=== PATIENT | female | born 1950 | race Caucasian/White ===

== ENCOUNTER 2024-09-24 22:50 | Inpatient (IN) | payer MEDICARE, OTHER ==
[2024-09-24] MEDS: SODIUM CHLORIDE 0.9% 500 ML 500 ML IV STA (23:11)
[2024-09-24] MEDS: AZITHROMYCIN 500 MG in SODIUM CHLORIDE 0.9% 250 ML IVPB STA (23:12)
[2024-09-24] MEDS: methylPREDNISolone SOD SUCCI 125 MG/2 ML VIAL IV STA (23:12)
[2024-09-24] MEDS: ALBUTEROL NEBULIZED 2.5 MG/3 ML INHALATION SCH (23:15)
[2024-09-24] MEDS: IPRATROPIUM 0.5 MG/2.5 ML NEBU INHALATION STA ×2 (23:16→23:56)
--- NOTE | 2024-09-24 23:21 | ED ---
General Adult HPI - General Stated complaint: YAEL Time Seen by Provider: 09/24/24 22:52 Source: patient, EMS Mode of arrival: EMS Limitations: no limitations - History of Present Illness Initial comments: Patient is a 74-year-old female presenting from her nursing facility today for "expiratory wheezing". Patient was at her facility this evening when nursing staff had listened to her lungs noted expiratory wheezes, prompting them to call the emergency department. Patient had additionally made comments stating she thought somebody had "slipped cocaine into her milk" however patient is known to make bizarre comments at baseline and this is her baseline mental status. Mackenzie ent does endorse a cough, no hemoptysis. 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 Denies chest pain or abdominal pain or additional complaints. States she did feel she had a fever earlier 100 degrees History is limited as patient reportedly "makes up stories". Does state to me comments such as she feels like somebody "somebody slipped TB into her". She is AO x4, pleasant calm and cooperative. - Related Data Home Medications Medication Instructions Recorded Confirmed Atorvastatin [Lipitor] 10 mg PO HS 09/25/24 09/25/24 FLUoxetine HCL [PROzac] 20 mg PO DAILY 09/25/24 09/25/24 Mirtazapine [Remeron] 15 mg PO HS 09/25/24 09/25/24 lisinopriL [Zestril] 20 mg PO DAILY 09/25/24 09/25/24 metFORMIN HCL ER [Glucophage XR] 500 mg PO DAILY@1700 09/25/24 09/25/24 risperiDONE [RisperDAL] 1 mg PO BID 09/25/24 09/25/24 Allergies Allergy/AdvReac Type Severity Reaction Status Date / Time Sulfa (Sulfonamide AdvReac Unknown Verified 09/25/24 09:18 Antibiotics) Childhood Review of Systems ROS Statement: Those systems with pertinent positive or pertinent negative responses have been documented in the HPI. ROS Other: All systems not noted in ROS Statement are negative. Past Medical History Past Medical History: Diabetes Mellitus, Hyperlipidemia, Hypertension, Thyroid Disorder History of Any Multi-Drug Resistant Organisms: None Reported Past Surgical History: Tonsillectomy Past Psychological History: No Psychological Hx Reported Smoking Status: Never smoker Past Alcohol Use History: None Reported Past Drug Use History: None Reported General Exam - General Exam Comments Initial Comments: PE: CONSTITUTIONAL: No apparent distress, well appearing SKIN: Warm, dry, no jaundice, hives or petechiae EYES: Pupils are equally round, extraocular movements intact without nystagmus, clear conjunctiva, non-icteric sclera HENT: Normocephalic, atraumatic, moist mucus membranes, oropharynx clear without exudates NECK: , Full range of motion, normal appearance PULMONARY: Expiratory wheezing throughout all lung eckert worse, with coarse rhonchi in the left lung field, normal excursion, no stridor, no accessory muscle use c CARDIOVASCULAR: Regular rate, rhythm, normal S1 and S2. No appreciated murmurs, rubs or gallops. Strong radial pulses with intact distal perfusion. No lower extremity edema GASTROINTESTINAL: Soft, active bowel sounds throughout, non-tender, non- distended, no palpable masses, no rebound or guarding. No hepatosplenomegaly MUSCULOSKELETAL: Extremities have no gross deformity, no edema, redness, or swelling. No calf swelling NEUROLOGIC:_a/o x 3, GCS 15, normal mentation and speech though at times makes bizarre comments. Moves all extremities x 4 without motor or sensory deficit PSYCHIATRIC: Pleasant mood and affect, thought process is somewhat tangential but able to maintain a clear line of thought when being asked about recent symptoms Limitations: no limitations Course Vital Signs 09/24/24 09/24/24 09/24/24 22:54 23:18 23:27 Temperature 98.7 F Pulse Rate 89 86 84 Respiratory 22 Rate Blood Pressure 146/80 O2 Sat by Pulse 98 Oximetry 09/24/24 09/25/24 09/25/24 23:56 00:06 00:16 Temperature Pulse Rate 93 88 96 Respiratory 22 Rate Blood Pressure 115/48 O2 Sat by Pulse 98 Oximetry 09/25/24 09/25/24 09/25/24 00:51 01:37 01:46 Temperature Pulse Rate 84 84 Respiratory 22 Rate Blood Pressure O2 Sat by Pulse Oximetry 09/25/24 09/25/24 09/25/24 01:58 04:00 06:00 Temperature 98.7 F Pulse Rate 92 84 79 Respiratory 21 18 18 Rate Blood Pressure 142/72 123/49 140/58 O2 Sat by Pulse 97 98 98 Oximetry 09/25/24 09/25/24 09/25/24 07:57 09:03 09:26 Temperature Pulse Rate 79 73 75 Respiratory 17 Rate Blood Pressure 142/55 O2 Sat by Pulse 98 100 Oximetry 09/25/24 09/25/24 09/25/24 10:28 12:07 12:09 Temperature Pulse Rate 84 96 78 Respiratory 14 16 Rate Blood Pressure 125/59 140/64 O2 Sat by Pulse 98 96 Oximetry 09/25/24 09/25/24 09/25/24 12:15 13:29 16:28 Temperature Pulse Rate 92 78 75 Respiratory 16 Rate Blood Pressure 130/56 O2 Sat by Pulse 94 L Oximetry 09/25/24 09/25/24 16:37 20:32 Temperature 98.8 F Pulse Rate 78 83 Respiratory 17 Rate Blood Pressure 132/60 O2 Sat by Pulse 96 Oximetry EKG Findings - EKG Comments: EKG Findings:: Sinus rhythm, rate 82 bpm VT interval 151 ms QT/QTc 380/420 ms, normal axis, no ST elevations or depressions, no arrhythmia, no delta waves, no Brugada pattern no STEMI Medical Decision Making - Medical Decision Making Was pt. sent in by a medical professional or institution (, PA, COOKING [employer]ING AND DRYING SUPERVISOR, urgent care, hospital, or fpc...) When possible be specific @Patient was sent in from her nursing facility for expiratory wheezes Did you speak to anyone other than the patient for history (EMS, parent, family, police, friend...)? What history was obtained from this source @ -Spoke with EMS personnel who state that on their arrival patient did have wheezing in lung eckert, pulse ox of 90% on room air, received albuterol nebulizer treatment and route which improved her lung sounds, additionally state patient is at her baseline mental status, known to make odd and bizarre comments Did you review nursing and triage notes (agree or disagree)? Why? @ -[I reviewed nursing and triage notes] Were old charts reviewed (outside hosp., previous admission, EMS record, old EKG, old radiological studies, urgent care reports/EKG's, fpc records)? Report findings @ -[Medical records reviewed]-I reviewed paperwork sent with patient from transferring facility, states she does have a guardian, confirms that patient can "tell stories" of behavior Differential Diagnosis (chest pain, altered mental status, abdominal pain women, abdominal pain men, vaginal bleeding, weakness, fever, dyspnea, syncope, headache, dizziness, GI bleed, back pain, seizure, CVA, palpatations, mental health, musculoskeletal)? @Differential Dyspnea: Coronary syndrome, arrhythmia, tamponade, asthma, COPD, pulmonary embolism, pneumonia, pneumothorax, pulmonary effusion, anaphylaxis, diabetic ketoacidosis, flailed chest, pulmonary contusion, diaphragmatic rupture, anemia, neuromuscular, this is not meant to be an all-inclusive list. EKG interpreted by me (3pts min.). @ -[As above] X-rays interpreted by me (1pt min.). @ -[None done] CT interpreted by me (1pt min.). @ -[None done] U/S interpreted by me (1pt. min.). @ -[None done] What testing was considered but not performed or refused? (CT, X-rays, U/S, labs)? Why? @ -[None] What meds were considered but not given or refused? Why? @ -[None] Did you discuss the management of the patient with other professionals (professionals i.e. , PA, COOKING CASING AND DRYING SUPERVISOR, lab, RT, psych nurse, social sciences research scientist, electrocardiographic technician, teacher, uniform patrol police officer, case management rn)? Give summary @ -[No] Was smoking cessation discussed for >3mins.? @ -[No] Was critical care preformed (if so, how long)? @ -[No] Were there social determinants of health that impacted care today? How? (Homelessness, low income, unemployed, alcoholism, drug addiction, transportation, low edu. Level, literacy, decrease access to med. care, retirement, rehab)? @ -[No] Was there de-escalation of care discussed even if they declined (Discuss DNR or withdrawal of care, Hospice)? @ -[No] What co-morbidities impacted this encounter? (DM, HTN, Smoking, COPD, CAD, Cancer, CVA, ARF, Chemo, Hep., AIDS, mental health diagnosis, sleep apnea, morbid obesity)? @ -Diabetes, hypertension, hyperlipidemia, thyroid disorder Was patient admitted / discharged? Hospital course, mention meds given and route, prescriptions, significant lab abnormalities, going to OR and other pertinent info. @ -[hospital course] this is a 74-year-old female presenting from assisted living facility today for expiratory wheezes. No listed or reported hx COPD or asthma, pt is a nonsmoker. Patient received albuterol from prior to arrival. Patient endorsed improvement of symptoms. On assessment she has wheeze in the bilateral lung eckert with rhonchi in the left lung field. She is afebrile with vital signs acceptable limits on arrival. Patient currently has no complaints and is resting comfortably. 89% pulse ox on room air, so placed on 2L NC. Discussed with patient plan for chest x-ray, basic labs, nebulizer treatments and steroids. Antibiotics were ordered as pt is not the best historian, given rhonchi in LL field and increased O2 requirement. Full sepsis bundle was not ordered as pt does not meet SIRS criteria on arrival. Patient agreeable plan of care. Patient is positive for RSV. On reassessment patient has persistent wheezes and rhonchi though pulmonary exam is slightly improved. Due to persistent wheezing and rhochi on exam despite adequate treatment, pt will be admitted for observation. Undiagnosed new problem with uncertain prognosis? @ -[No] Drug Therapy requiring intensive monitoring for toxicity (Heparin, Nitro, Insulin, Cardizem)? @ -[No] Were any procedures done? @ -[No] Diagnosis/symptom? @Acute bronchitis , RSV Acute, or Chronic, or Acute on Chronic? acute Uncomplicated (without systemic symptoms) or Complicated (systemic symptoms)? complicated Side effects of treatment? @ -[No] Exacerbation, Progression, or Severe Exacerbation? @ -[No] Poses a threat to life or bodily function? How? (Chest pain, USA, DC, pneumonia, PE, COPD, DKA, ARF, appy, cholecystitis, CVA, Diverticulitis, Homicidal, Suicidal, threat to staff... and all critical care pts) @ -yes - Lab Data Result diagrams: 09/27/24 04:42 09/27/24 04:37 Lab Results 09/24/24 09/24/24 09/24/24 Range/Units 23:13 23:13 23:13 WBC 6.7 (3.8-10.6) k/uL RBC 4.35 (3.80-5.40) m/uL Hgb 12.1 (11.4-16.0) gm/dL Hct 38.3 (34.0-46.0) % MCV 88.1 (80.0-100.0) fL MCH 27.9 (25.0-35.0) pg MCHC 31.6 (31.0-37.0) g/dL RDW 13.6 (11.5-15.5) % Plt Count 121 L (150-450) k/uL MPV 8.1 Neutrophils % 73 % Lymphocytes % 15 % Monocytes % 6 % Eosinophils % 4 % Basophils % 0 % Neutrophils # 4.9 (1.3-7.7) k/uL Lymphocytes # 1.0 (1.0-4.8) k/uL Monocytes # 0.4 (0-1.0) k/uL Eosinophils # 0.3 (0-0.7) k/uL Basophils # 0.0 (0-0.2) k/uL Hypochromasia PT 11.4 (10.0-12.5) sec INR 1.0 (<1.2) APTT 21.8 L (22.0-30.0) sec Sodium 131 L (137-145) mmol/L Potassium 4.4 (3.5-5.1) mmol/L Chloride 96 L (98-107) mmol/L Carbon Dioxide 26 (22-30) mmol/L Anion Gap 9 mmol/L BUN 17 (7-17) mg/dL Creatinine 0.51 L (0.52-1.04) mg/dL Est GFR (CKD-EPI)AfAm >90 (>60 ml/min/1.73 sqM) Est GFR (CKD-EPI)NonAf >90 (>60 ml/min/1.73 sqM) Glucose 163 H (74-99) mg/dL POC Glucose (mg/dL) (70-110) mg/dL POC Glu Hr Leader ID Calcium 8.9 (8.4-10.2) mg/dL Total Bilirubin 0.5 (0.2-1.3) mg/dL AST 89 H (14-36) U/L ALT 122 H (4-34) U/L Alkaline Phosphatase 80 (38-126) U/L Troponin I (0.000-0.034) ng/mL NT-Pro-B Natriuret Pep 1480 pg/mL Total Protein 6.7 (6.3-8.2) g/dL Albumin 3.6 (3.5-5.0) g/dL Globulin g/dL Albumin/Globulin Ratio Influenza Type A (PCR) (Not Detectd) Influenza Type B (PCR) (Not Detectd) RSV (PCR) (Not Detectd) SARS-CoV-2 (PCR) (Not Detectd) 09/24/24 09/24/24 09/25/24 Range/Units 23:13 23:13 07:56 WBC 6.8 (3.8-10.6) k/uL RBC 4.04 (3.80-5.40) m/uL Hgb 11.2 L (11.4-16.0) gm/dL Hct 36.5 (34.0-46.0) % MCV 90.4 (80.0-100.0) fL MCH 27.8 (25.0-35.0) pg MCHC 30.7 L (31.0-37.0) g/dL RDW 13.7 (11.5-15.5) % Plt Count 159 (150-450) k/uL MPV 7.8 Neutrophils % 90 % Lymphocytes % 7 % Monocytes % 2 % Eosinophils % 1 % Basophils % 0 % Neutrophils # 6.1 (1.3-7.7) k/uL Lymphocytes # 0.5 L (1.0-4.8) k/uL Monocytes # 0.1 (0-1.0) k/uL Eosinophils # 0.0 (0-0.7) k/uL Basophils # 0.0 (0-0.2) k/uL Hypochromasia Slight PT (10.0-12.5) sec INR (<1.2) APTT (22.0-30.0) sec Sodium (137-145) mmol/L Potassium (3.5-5.1) mmol/L Chloride (98-107) mmol/L Carbon Dioxide (22-30) mmol/L Anion Gap mmol/L BUN (7-17) mg/dL Creatinine (0.52-1.04) mg/dL Est GFR (CKD-EPI)AfAm (>60 ml/min/1.73 sqM) Est GFR (CKD-EPI)NonAf (>60 ml/min/1.73 sqM) Glucose (74-99) mg/dL POC Glucose (mg/dL) (70-110) mg/dL POC Glu Hr Leader ID Calcium (8.4-10.2) mg/dL Total Bilirubin (0.2-1.3) mg/dL AST (14-36) U/L ALT (4-34) U/L Alkaline Phosphatase (38-126) U/L Troponin I <0.012 (0.000-0.034) ng/mL NT-Pro-B Natriuret Pep pg/mL Total Protein (6.3-8.2) g/dL Albumin (3.5-5.0) g/dL Globulin g/dL Albumin/Globulin Ratio Influenza Type A (PCR) Not Detected (Not Detectd) Influenza Type B (PCR) Not Detected (Not Detectd) RSV (PCR) Detected A (Not Detectd) SARS-CoV-2 (PCR) Not Detected (Not Detectd) 09/25/24 09/25/24 09/25/24 Range/Units 07:56 12:04 21:35 WBC (3.8-10.6) k/uL RBC (3.80-5.40) m/uL Hgb (11.4-16.0) gm/dL Hct (34.0-46.0) % MCV (80.0-100.0) fL MCH (25.0-35.0) pg MCHC (31.0-37.0) g/dL RDW (11.5-15.5) % Plt Count (150-450) k/uL MPV Neutrophils % % Lymphocytes % % Monocytes % % Eosinophils % % Basophils % % Neutrophils # (1.3-7.7) k/uL Lymphocytes # (1.0-4.8) k/uL Monocytes # (0-1.0) k/uL Eosinophils # (0-0.7) k/uL Basophils # (0-0.2) k/uL Hypochromasia PT (10.0-12.5) sec INR (<1.2) APTT (22.0-30.0) sec Sodium 135 L (137-145) mmol/L Potassium 4.6 (3.5-5.1) mmol/L Chloride 100 (98-107) mmol/L Carbon Dioxide 25 (22-30) mmol/L Anion Gap 10 mmol/L BUN 16 (7-17) mg/dL Creatinine 0.42 L (0.52-1.04) mg/dL Est GFR (CKD-EPI)AfAm >90 (>60 ml/min/1.73 sqM) Est GFR (CKD-EPI)NonAf >90 (>60 ml/min/1.73 sqM) Glucose 325 H (74-99) mg/dL POC Glucose (mg/dL) 360 H 323 H (70-110) mg/dL POC Glu Hr Leader ID Raul Kirby Calcium 8.8 (8.4-10.2) mg/dL Total Bilirubin 0.5 (0.2-1.3) mg/dL AST 60 H (14-36) U/L ALT 116 H (4-34) U/L Alkaline Phosphatase 81 (38-126) U/L Troponin I (0.000-0.034) ng/mL NT-Pro-B Natriuret Pep pg/mL Total Protein 6.7 (6.3-8.2) g/dL Albumin 3.6 (3.5-5.0) g/dL Globulin 3.1 g/dL Albumin/Globulin Ratio 1.2 Influenza Type A (PCR) (Not Detectd) Influenza Type B (PCR) (Not Detectd) RSV (PCR) (Not Detectd) SARS-CoV-2 (PCR) (Not Detectd) Disposition Clinical Impression: Acute bronchitis, RSV (respiratory syncytial virus infection) Disposition: ADMITTED IP TO THIS HOSP Condition: Stable
[2024-09-24 23:31] LABS: Basophils % (A) 0 %; Eosinophils # (A) 0.3 k/uL (0-0.7); Eosinophils % (A) 4 %; HCT 38.3 % (34.0-46.0); HGB 12.1 gm/dL (11.4-16.0); Lymphocytes % (A) 15 %; MCH 27.9 pg (25.0-35.0); MCHC 31.6 g/dL (31.0-37.0); MCV 88.1 fL (80.0-100.0); Mean Platelet Volume 8.1; Monocytes # (A) 0.4 k/uL (0-1.0); Monocytes % (A) 6 %; Neutrophils # (A) 4.9 k/uL (1.3-7.7); Neutrophils % (A) 73 %; Platelet Count 121 k/uL (150-450); RBC 4.35 m/uL (3.80-5.40); RDW 13.6 % (11.5-15.5); WBC 6.7 k/uL (3.8-10.6)
[2024-09-24 23:47] LABS: ALT 122 U/L (4-34); AST 89 U/L (14-36); African American GFR (CKD) >90 (>60 ml/min/1.73 sqM); Albumin 3.6 g/dL (3.5-5.0); Alkaline Phosphatase 80 U/L (38-126); Anion Gap 9 mmol/L; Blood Urea Nitrogen 17 mg/dL (7-17); Calcium 8.9 mg/dL (8.4-10.2); Carbon Dioxide 26 mmol/L (22-30); Chloride 96 mmol/L (98-107); Glucose 163 mg/dL (74-99); Non-African American GFR(CKD) >90 (>60 ml/min/1.73 sqM); Potassium 4.4 mmol/L (3.5-5.1); Sodium 131 mmol/L (137-145); Total Bilirubin 0.5 mg/dL (0.2-1.3); Total Protein 6.7 g/dL (6.3-8.2)
[2024-09-24 23:48] LABS: Prothrombin Time 11.4 sec (10.0-12.5)
[2024-09-24 23:51] LABS: Partial Thromboplastin Time 21.8 sec (22.0-30.0)
[2024-09-24 23:55] LABS: NT-Pro-B-Type Natriuretic Pept 1480 pg/mL
[2024-09-25 00:06] LABS: Influenza A Not Detected (Not Detectd); Influenza B Not Detected (Not Detectd); RSV Detected (Not Detectd)
[2024-09-25] MEDS ORDERED: IPRATROPIUM-ALBUTEROL 3 ML NEB INHALATION PRN (01:10)
[2024-09-25] MEDS ORDERED: ACETAMINOPHEN TAB 325 MG TAB PO PRN (01:10)
[2024-09-25] MEDS ORDERED: ONDANSETRON 4 MG/2 ML VIAL IVP PRN (01:10)
[2024-09-25] MEDS ORDERED: NALOXONE 0.4 MG/ML 1 ML VIAL IVP PRN (01:10)
--- NOTE | 2024-09-25 01:21 | XR ---
EXAM: XR Chest, 2 Views CLINICAL HISTORY: ITS.REASON XR Reason: wheezing, worse on L>R TECHNIQUE: Frontal and lateral views of the chest. COMPARISON: No relevant prior studies available. FINDINGS: Lungs: Atelectasis in the LEFT midlung field. Pleural space: Unremarkable. No pneumothorax. Heart: Unremarkable. No cardiomegaly. Mediastinum: Unremarkable. Bones/joints: Unremarkable. IMPRESSION: No acute findings in the chest.
[2024-09-25] MEDS: IPRATROPIUM-ALBUTEROL 3 ML NEB INHALATION STA (01:35)
[2024-09-25] MEDS: risperiDONE 1 MG TAB PO SCH (01:58)
[2024-09-25] MEDS: MIRTAZAPINE 15 MG TAB PO SCH (01:58)
[2024-09-25 08:25] LABS: Basophils % (A) 0 %; Eosinophils % (A) 1 %; HCT 36.5 % (34.0-46.0); HGB 11.2 gm/dL (11.4-16.0); Hypochromasia Slight; Lymphocytes # (A) 0.5 k/uL (1.0-4.8); Lymphocytes % (A) 7 %; MCH 27.8 pg (25.0-35.0); MCHC 30.7 g/dL (31.0-37.0); MCV 90.4 fL (80.0-100.0); Mean Platelet Volume 7.8; Monocytes # (A) 0.1 k/uL (0-1.0); Monocytes % (A) 2 %; Neutrophils # (A) 6.1 k/uL (1.3-7.7); Neutrophils % (A) 90 %; Platelet Count 159 k/uL (150-450); RBC 4.04 m/uL (3.80-5.40); RDW 13.7 % (11.5-15.5); WBC 6.8 k/uL (3.8-10.6)
[2024-09-25] MEDS: metFORMIN 500 MG TAB PO SCH (08:33)
[2024-09-25] MEDS: lisinopriL 20 MG TAB PO SCH (08:33)
[2024-09-25] MEDS: FLUoxetine HCL 20 MG CAP PO SCH (08:33)
[2024-09-25] MEDS: ENOXAPARIN 40 MG/0.4 ML SYRINGE SQ SCH (08:33)
[2024-09-25] MEDS: predniSONE 20 MG TAB PO SCH (08:33)
[2024-09-25 08:43] LABS: ALT 116 U/L (4-34); AST 60 U/L (14-36); African American GFR (CKD) >90 (>60 ml/min/1.73 sqM); Albumin 3.6 g/dL (3.5-5.0); Albumin/Globulin Ratio 1.2; Alkaline Phosphatase 81 U/L (38-126); Anion Gap 10 mmol/L; Blood Urea Nitrogen 16 mg/dL (7-17); Calcium 8.8 mg/dL (8.4-10.2); Carbon Dioxide 25 mmol/L (22-30); Chloride 100 mmol/L (98-107); Globulin 3.1 g/dL; Glucose 325 mg/dL (74-99); Non-African American GFR(CKD) >90 (>60 ml/min/1.73 sqM); Potassium 4.6 mmol/L (3.5-5.1); Sodium 135 mmol/L (137-145); Total Bilirubin 0.5 mg/dL (0.2-1.3); Total Protein 6.7 g/dL (6.3-8.2)
[2024-09-25] MEDS: IPRATROPIUM-ALBUTEROL 3 ML NEB INHALATION SCH (09:03)
[2024-09-25 12:05] LABS: Glucose,Whole Blood 360 mg/dL (70-110)
--- NOTE | 2024-09-25 12:05 | P.HPIM ---
History of Present Illness Pleasant female came in with complaints of wheezing and shortness of breath. Patient is found to have RSV patient denied any history of smoking of COPD. Patient is saturating well on 2 L of oxygen has quite a bit of rhonchi on exam. Patient denied any fever or chills. Patient is quite weak lives at an assisted living patient is available to get up of the get out of the bed patient had a recent hip surgery for hip fracture. Patient had a fever before she came to the hospital. REVIEW OF SYSTEMS: All other systems are negative except those mentioned in the HPI PHYSICAL EXAMINATION: GENERAL: The patient is alert and oriented x3, not in any acute distress. Well developed, well nourished. HEENT: Pupils are round and equally reacting to light. EOMI. No scleral icterus. No conjunctival pallor. Normocephalic, atraumatic. No pharyngeal erythema. No thyromegaly. CARDIOVASCULAR: S1 and S2 present. No murmurs, rubs, or gallops. PULMONARY: Significant bilateral rhonchi with mild expiratory wheezing ABDOMEN: Soft, nontender, nondistended, normoactive bowel sounds. No palpable organomegaly. MUSCULOSKELETAL: No joint swelling or deformity. EXTREMITIES: No cyanosis, clubbing, or pedal edema. NEUROLOGICAL: Gross neurological examination did not reveal any focal deficits. SKIN: No rashes. Assessment and plan -Severe bronchitis with bronchospasm: Patient is on systemic steroids because of her eyelid will blood sugars have come down the steroids are also started on doxycycline for secondary bacterial bronchitis -RSV infection/bronchitis supportive care -Type 2 diabetes mellitus uncontrolled elevated blood sugars due to systemic steroids patient will be started on high-dose sliding scale patient is on metfor min which will be continued -Hyperlipidemia -Hypertension -Hypothyroidism Significant generalized weakness physical therapy Occupational Therapy evaluation -Recent right hip fracture with intramedullary nailing DVT prophylaxis: Lovenox Past Medical History Past Medical History: Diabetes Mellitus, Hyperlipidemia, Hypertension, Thyroid Disorder History of Any Multi-Drug Resistant Organisms: None Reported Past Surgical History: Tonsillectomy Past Psychological History: No Psychological Hx Reported Smoking Status: Never smoker Past Alcohol Use History: None Reported Past Drug Use History: None Reported Medications and Allergies Home Medications Medication Instructions Recorded Confirmed Type Atorvastatin [Lipitor] 10 mg PO HS 09/25/24 09/25/24 History FLUoxetine HCL [PROzac] 20 mg PO DAILY 09/25/24 09/25/24 History Mirtazapine [Remeron] 15 mg PO HS 09/25/24 09/25/24 History lisinopriL [Zestril] 20 mg PO DAILY 09/25/24 09/25/24 History metFORMIN HCL ER [Glucophage XR] 500 mg PO DAILY@1700 09/25/24 09/25/24 History risperiDONE [RisperDAL] 1 mg PO BID 09/25/24 09/25/24 History Allergies Allergy/AdvReac Type Severity Reaction Status Date / Time Sulfa (Sulfonamide AdvReac Unknown Verified 09/25/24 09:18 Antibiotics) Childhood Physical Exam Vitals: Vital Signs Temp Pulse Resp BP Pulse Ox 09/25/24 09:26 75 09/25/24 09:03 73 100 09/25/24 07:57 79 17 142/55 98 09/25/24 06:00 98.7 F 79 18 140/58 98 09/25/24 04:00 84 18 123/49 98 09/25/24 01:58 92 21 142/72 97 09/25/24 01:46 84 09/25/24 01:37 84 09/25/24 00:51 22 09/25/24 00:16 96 22 115/48 98 09/25/24 00:06 88 09/24/24 23:56 93 09/24/24 23:27 84 09/24/24 23:18 86 09/24/24 22:54 98.7 F 89 22 146/80 98 Intake and Output 09/24/24 09/25/24 09/25/24 22:59 06:59 14:59 Output Total 1000 Balance -1000 Output: Urine 1000 Other: Weight 72.575 kg Results CBC & Chem 7: 09/25/24 07:56 09/25/24 07:56 Labs: Abnormal Lab Results - Last 24 Hours (Table) 09/24/24 09/24/24 09/24/24 Range/Units 23:13 23:13 23:13 Hgb (11.4-16.0) gm/dL MCHC (31.0-37.0) g/dL Plt Count 121 L (150-450) k/uL Lymphocytes # (1.0-4.8) k/uL APTT 21.8 L (22.0-30.0) sec Sodium 131 L (137-145) mmol/L Chloride 96 L (98-107) mmol/L Creatinine 0.51 L (0.52-1.04) mg/dL Glucose 163 H (74-99) mg/dL AST 89 H (14-36) U/L ALT 122 H (4-34) U/L RSV (PCR) (Not Detectd) 09/24/24 09/25/24 09/25/24 Range/Units 23:13 07:56 07:56 Hgb 11.2 L (11.4-16.0) gm/dL MCHC 30.7 L (31.0-37.0) g/dL Plt Count (150-450) k/uL Lymphocytes # 0.5 L (1.0-4.8) k/uL APTT (22.0-30.0) sec Sodium 135 L (137-145) mmol/L Chloride (98-107) mmol/L Creatinine 0.42 L (0.52-1.04) mg/dL Glucose 325 H (74-99) mg/dL AST 60 H (14-36) U/L ALT 116 H (4-34) U/L RSV (PCR) Detected A (Not Detectd)
[2024-09-25] MEDS: INSULIN LISPRO (HumaLOG) 100 UNIT/ML 10 mL VL SQ SCH (13:25)
[2024-09-25] MEDS: DOXYCYCLINE 100 MG TABLET PO SCH (13:26)
[2024-09-25 21:36] LABS: Glucose,Whole Blood 323 mg/dL (70-110)
[2024-09-25] MEDS: ATORVASTATIN 10 MG TAB PO SCH (21:48)
[2024-09-26 05:47] LABS: Glucose,Whole Blood 150 mg/dL (70-110)
[2024-09-26 08:42] LABS: HCT 35.6 % (37.2-46.3); HGB 11.4 g/dL (12.0-15.0); MCH 28.1 pg (27.0-32.0); MCV 87.7 FL (80.0-97.0); Mean Platelet Volume 10.8 FL (9.5-12.2); NRBC Per 100 WBC 0 X 10*3/uL (0.00-0.01); Platelet Count 195 X 10*3/uL (140-440); RBC 4.06 X 10*6/uL (4.10-5.20); RDW 14.1 % (11.5-14.5); WBC 14.87 X 10*3/uL (4.50-10.00)
[2024-09-26 08:48] LABS: Blood Urea Nitrogen 19.8 mg/dL (9.0-27.0); Calcium 8.9 mg/dL (8.7-10.3); Carbon Dioxide 26.9 mmol/L (21.6-31.8); Chloride 100 mmol/L (96-109); Glucose 136 mg/dL (70-110); Magnesium 2.1 mg/dL (1.5-2.4); Potassium 4.4 mmol/L (3.5-5.5); Sodium 136 mmol/L (135-145)
[2024-09-26] MEDS: BENZONATATE 100 MG CAP PO PRN (09:02)
[2024-09-26] MEDS: predniSONE 20 MG TAB PO SCH (09:02)
[2024-09-26 12:21] LABS: Glucose,Whole Blood 258 mg/dL (70-110)
--- NOTE | 2024-09-26 17:21 | P.PN ---
Subjective Progress Note Date: 09/26/24 Pleasant female came in with complaints of wheezing and shortness of breath. Patient is found to have RSV patient denied any history of smoking of COPD. Patient is saturating well on 2 L of oxygen has quite a bit of rhonchi on exam. Patient denied any fever or chills. Patient is quite weak lives at an assisted living patient is available to get up of the get out of the bed patient had a recent hip surgery for hip fracture. Patient had a fever before she came to the hospital. 09/26/2024 Patient states she is feeling slightly better still with bronchospastic cough. She is from [facility] although she states she came from somewhere else, she is having some intermittent periods of confusion. White blood cell count 14.87. Sodium 136, BUN 19.8, creatinine 0.6. REVIEW OF SYSTEMS: All other systems are negative except those mentioned in the HPI PHYSICAL EXAMINATION: GENERAL: The patient is alert and oriented x2-3, not in any acute distress. Well developed, well nourished. HEENT: Pupils are round and equally reacting to light. EOMI. No scleral icterus. No conjunctival pallor. Normocephalic, atraumatic. No pharyngeal erythema. No thyromegaly. CARDIOVASCULAR: S1 and S2 present. No murmurs, rubs, or gallops. PULMONARY: Significant bilateral rhonchi with mild expiratory wheezing ABDOMEN: Soft, nontender, nondistended, normoactive bowel sounds. No palpable organomegaly. MUSCULOSKELETAL: No joint swelling or deformity. EXTREMITIES: No cyanosis, clubbing, or pedal edema. NEUROLOGICAL: Gross neurological examination did not reveal any focal deficits. Generalized weakness SKIN: No rashes. Assessment and plan -Severe bronchitis with bronchospasm: Patient is on systemic steroids, also started on doxycycline for secondary bacterial bronchitis -RSV infection/bronchitis supportive care -Type 2 diabetes mellitus uncontrolled elevated blood sugars due to systemic steroids patient will be started on high-dose sliding scale patient is on metformin which will be continued -Hyperlipidemia -Hypertension -Hypothyroidism Significant generalized weakness physical therapy Occupational Therapy evaluation recommending subacute rehab -Recent right hip fracture with intramedullary nailing DVT prophylaxis: Lovenox Social work on board for discharge planning. PT recommending JUANPABLO. Social work to follow up tomorrow. Patient resides at [facility]. Repeat CBC and CMP in the AM. The impression and plan of care has been dictated by Rhina Negrete Nurse Practitioner as directed. Dr. Eliecer MD I have performed a history and physical examination and medical decision making of this patient, discussed the same with the dictator, and agree with the dictators assessment and plan as written, documented as a scribe. Based on total visit time, I have performed more than 50% of this visit. Objective - Vital Signs Vital signs: Vital Signs Temp 98.1 F 09/26/24 15:00 Pulse 82 09/26/24 16:58 Resp 16 09/26/24 15:00 BP 149/76 09/26/24 15:00 Pulse Ox 94 L 09/26/24 15:00 FiO2 Intake & Output 09/25/24 09/26/24 09/26/24 18:59 06:59 18:59 Intake Total 480 Output Total 450 Balance -450 480 Weight 72.575 kg Intake: Oral 480 Output: Urine 450 Other: Voiding Method Diaper Bedside Commode Incontinent Diaper External Catheter # Voids 2 1 # Bowel Movements 0 - Labs CBC & Chem 7: 09/26/24 05:22 09/26/24 05:22 Labs: Abnormal Lab Results - Last 24 Hours (Table) 09/25/24 09/26/24 09/26/24 Range/Units 21:35 05:22 05:22 WBC 14.87 H (4.50-10.00) X 10*3/uL RBC 4.06 L (4.10-5.20) X 10*6/uL Hgb 11.4 L (12.0-15.0) g/dL Hct 35.6 L (37.2-46.3) % BUN/Creatinine Ratio 33.00 H (12.00-20.00) Ratio Glucose 136 H (70-110) mg/dL POC Glucose (mg/dL) 323 H (70-110) mg/dL 09/26/24 09/26/24 Range/Units 05:41 12:20 WBC (4.50-10.00) X 10*3/uL RBC (4.10-5.20) X 10*6/uL Hgb (12.0-15.0) g/dL Hct (37.2-46.3) % BUN/Creatinine Ratio (12.00-20.00) Ratio Glucose (70-110) mg/dL POC Glucose (mg/dL) 150 H 258 H (70-110) mg/dL Assessment and Plan Time with Patient: Less than 30
[2024-09-26 17:33] LABS: Glucose,Whole Blood 276 mg/dL (70-110)
[2024-09-26 20:13] LABS: Glucose,Whole Blood 191 mg/dL (70-110)
[2024-09-26] MEDS: INSULIN GLARGINE (LANTUS) 100 UNIT/ML SYR SQ SCH (20:29)
[2024-09-27 06:21] LABS: Glucose,Whole Blood 120 mg/dL (70-110)
[2024-09-27 08:01] VITALS: RESP 16
[2024-09-27 09:21] LABS: Basophils # (A) 0.04 X 10*3/uL (0.00-0.10); Basophils % (A) 0.3 %; Eosinophils # (A) 0.03 X 10*3/uL (0.04-0.35); Eosinophils % (A) 0.2 %; Lymphocytes # (A) 2.43 X 10*3/uL (0.90-5.00); Lymphocytes % (A) 19.1 %; MCH 27.4 pg (27.0-32.0); MCHC 30.6 g/dL (32.0-37.0); MCV 89.6 FL (80.0-97.0); Mean Platelet Volume 10.7 FL (9.5-12.2); Monocytes # (A) 0.78 X 10*3/uL (0.20-1.00); Monocytes % (A) 6.1 %; NRBC Per 100 WBC 0 X 10*3/uL (0.00-0.01); Neutrophils # (A) 9.19 X 10*3/uL (1.80-7.70); Neutrophils % (A) 72.3 %; Platelet Count 241 X 10*3/uL (140-440); RBC 4.02 X 10*6/uL (4.10-5.20); RDW 14.3 % (11.5-14.5); WBC 12.72 X 10*3/uL (4.50-10.00)
[2024-09-27 09:25] LABS: BUN/Creat Ratio 33.83 Ratio (12.00-20.00); Blood Urea Nitrogen 20.3 mg/dL (9.0-27.0); Carbon Dioxide 25.5 mmol/L (21.6-31.8); Chloride 101 mmol/L (96-109); Glucose 154 mg/dL (70-110); Potassium 4.6 mmol/L (3.5-5.5); Sodium 137 mmol/L (135-145)
[2024-09-27 09:26] LABS: ALT 90 U/L (8-44); AST 34 U/L (13-35); Albumin 3.4 g/dL (3.8-4.9); Albumin/Globulin Ratio 1.13 Ratio (1.60-3.17); Alkaline Phosphatase 73 U/L (41-126); Calcium 9.1 mg/dL (8.7-10.3); Total Bilirubin 0.2 mg/dL (0.3-1.2); Total Protein 6.4 g/dL (6.2-8.2)
[2024-09-27 12:34] LABS: Glucose,Whole Blood 194 mg/dL (70-110)
[2024-09-27 14:12] VITALS: BP 162/76; TEMP 97.7
--- NOTE | 2024-09-27 14:59 | P.DS ---
Providers Date of admission: 09/25/24 22:49 Attending physician: Eran Armenta MD Primary care physician: Stated None Hospital Course: Final Diagnosis -Severe bronchitis with bronchospasm: -secondary bacterial bronchitis -RSV infection/bronchitis supportive care -Type 2 diabetes mellitus -Steroid Induced hyperglycemia -Hyperlipidemia -Hypertension -Hypothyroidism -Significant generalized weakness physical therapy Occupational Therapy evaluation recommending subacute rehab although legal guardian recommending return to the [facility]. -Hx right hip fracture with intramedullary nailing Discharge Disposition Patient is stable for discharge back to the [facility]. Continue supportive care for the acute RSV infection. Continue oral doxycycline for 3 more days . Continue oral prednisone taper. Use albuterol inhaler as needed. Use symbicort inhaler for the next week Hospital Course Pleasant female came in with complaints of wheezing and shortness of breath. Patient is found to have RSV patient denied any history of smoking of COPD. Patient is saturating well on 2 L of oxygen has quite a bit of rhonchi on exam. Patient denied any fever or chills. Patient is quite weak lives at an assisted living they provide total care for this patient. Patient had a fever before she came to the hospital. She was started on supportive care for the acute RSV infection including breathing treatments and cough medicine, systemic steroids. Clinically she has improved. She has been afebrile now admission. Blood cell count is 12.72, hemoglobin 11.0, sodium level of 137 BUN of 20.3 creatinine 0.6. Her LFTs which were elevated on admission has been trending downwards. Patient is on room air with oxygen saturations of 95%. She can be discharged back to the assisted living. Please see medication reconciliation for a list of current medications. Thank you for allowing us to participate in the care of this patient. The impression and plan of care has been dictated by Rhina Negrete Nurse Practitioner as directed. Dr. Eliecer MD I have performed a history and physical examination and medical decision making of this patient, discussed the same with the dictator, and agree with the dictators assessment and plan as written, documented as a scribe. Based on total visit time, I have performed more than 50% of this visit. Patient Condition at Discharge: Stable Plan - Discharge Summary Discharge Rx Participant: No New Discharge Prescriptions: New methylPREDNISolone Dose Pack [Medrol Dose Pack] 4 mg PO DIRECTED #21 tab Doxycycline 100 mg PO BID 3 Days #6 tab Budesonide/Formoterol Fumarate [Symbicort 80-4.5 Mcg Inhaler] 1 puff INHALATION BID #10.2 gm Benzonatate [Tessalon Perles] 100 mg PO TID PRN 7 Days #21 cap PRN Reason: Cough Albuterol Inhaler [Ventolin Hfa Inhaler] 1 puff INHALATION QID PRN #8 gm PRN Reason: Shortness Of Breath Or Wheezing Continue Mirtazapine [Remeron] 15 mg PO HS FLUoxetine HCL [PROzac] 20 mg PO DAILY risperiDONE [RisperDAL] 1 mg PO BID metFORMIN HCL ER [Glucophage XR] 500 mg PO DAILY@1700 lisinopriL [Zestril] 20 mg PO DAILY Atorvastatin [Lipitor] 10 mg PO HS Discharge Medication List Atorvastatin [Lipitor] 10 mg PO HS 09/25/24 [History] FLUoxetine HCL [PROzac] 20 mg PO DAILY 09/25/24 [History] Mirtazapine [Remeron] 15 mg PO HS 09/25/24 [History] lisinopriL [Zestril] 20 mg PO DAILY 09/25/24 [History] metFORMIN HCL ER [Glucophage XR] 500 mg PO DAILY@1700 09/25/24 [History] risperiDONE [RisperDAL] 1 mg PO BID 09/25/24 [History] Albuterol Inhaler [Ventolin Hfa Inhaler] 1 puff INHALATION QID PRN #8 gm 09/27/24 [Rx] Benzonatate [Tessalon Perles] 100 mg PO TID PRN 7 Days #21 cap 09/27/24 [Rx] Budesonide/Formoterol Fumarate [Symbicort 80-4.5 Mcg Inhaler] 1 puff INHALATION BID #10.2 gm 09/27/24 [Rx] Doxycycline 100 mg PO BID 3 Days #6 tab 09/27/24 [Rx] methylPREDNISolone Dose Pack [Medrol Dose Pack] 4 mg PO DIRECTED #21 tab 09/27/24 [Rx] Follow up Appointment(s)/Referral(s): Home Health,[facility] [NON-STAFF] - As Needed None,Stated [Primary Care Provider] - 1-2 days Activity/Diet/Wound Care/Special Instructions: Return to [facility]-Legal Guardian(LG) P: [phone] Continue oral doxycycline for 3 more days Continue oral prednisone taper Use albuterol inhaler as needed Use symbicort inhaler for the next week Discharge Disposition: HOME SELF-CARE
[2024-09-27 16:04] VITALS: PULSE 76
[2024-09-27 17:08] LABS: Glucose,Whole Blood 258 mg/dL (70-110)
== END 2024-09-27 17:22 | disposition home health service (06) | DRG 203 ==
LOC: EC 22:50 → EEVIPCON 22:50 → 6NMEDSUR 09-25 01:10 → OBSVTOIN 09-25 22:49
PROVIDERS: ADMIT Internal Medicine; ATTEND Internal Medicine
DX: J20.5 Acute bronchitis due to respiratory syncytial virus (principal); E03.9 Hypothyroidism, unspecified; E11.65 Type 2 diabetes mellitus with hyperglycemia; I10 Essential (primary) hypertension; E78.5 Hyperlipidemia, unspecified; Z11.52 Encounter for screening for COVID-19; T38.0X5A Adverse effect of glucocorticoids and synthetic analogues, initial encounter; X58.XXXA Exposure to other specified factors, initial encounter; Z79.899 Other long term (current) drug therapy; Z79.84 Long term (current) use of oral hypoglycemic drugs; Z79.890 Hormone replacement therapy; R53.1 Weakness; Z88.2 Allergy status to sulfonamides
CPT/HCPCS: 36415; 71046; 80048; 80053; 83735; 83880; 84484; 85025; 85027; 85610; 85730; 87636; 93005; 94640; 94760; 96365; 96368; 96372; 96375; 99285

== ENCOUNTER 2024-12-29 15:24 | Emergency (ER) | payer MEDICARE ==
--- NOTE | 2024-12-29 15:49 | ED ---
General Adult HPI - General Chief complaint: Urogenital Stated complaint: AMS Time Seen by Provider: 12/29/24 15:35 Source: patient, EMS, RN notes reviewed, old records reviewed Mode of arrival: EMS Limitations: altered mental status - History of Present Illness Initial comments: This is a 74-year-old female who comes from a half-way because of altered mental status. Patient was supposed to be on antibiotics for a urinary tract infection but she has refused to take them because someone ordered and that was not a doctor and the drugs are coming from a [facility]. Patient has no complaints. Patient is in no pain. Patient denies chest pain or palpitations. Patient has difficulty breathing shortness of breath. Patient has abdominal pain. Patient has nausea vomiting diarrhea. Patient is alert and orient x 2 and she does not seem to understand why she is here. - Related Data Home Medications Medication Instructions Recorded Confirmed Atorvastatin [Lipitor] 10 mg PO HS@199909/25/24 12/29/24 FLUoxetine HCL [PROzac] 20 mg PO DAILY@79909/25/24 12/29/24 Mirtazapine [Remeron] 15 mg PO HS@199909/25/24 12/29/24 lisinopriL [Zestril] 20 mg PO DAILY@79909/25/24 12/29/24 risperiDONE [RisperDAL] 1 mg PO BID@170,199909/25/24 12/29/24 Albuterol Inhaler [Ventolin Hfa 1 puff INHALATION RT-QID PRN 12/26/24 12/29/24 Inhaler] Budesonide/Formoterol Fumarate 1 puff INHALATION RT-BID@08,199912/26/24 12/29/24 [Symbicort 80-4.5 Mcg Inhaler] Fluocinolone Acetonide [Synalar] 1 applic TOPICAL DAILY PRN 12/26/24 12/29/24 Sennosides/Docusate Sodium [Senna 1 - 2 tab PO HS PRN 12/26/24 12/29/24 Plus 8.6-50 mg Tablet] sitaGLIPtin [Januvia] 25 mg PO DAILY@0800 12/26/24 12/29/24 risperiDONE [RisperDAL] 0.5 mg PO HS@199912/29/24 12/29/24 Previous Rx's Medication Instructions Recorded Cefdinir 300 mg PO Q12HR #6 cap 12/28/24 Allergies Allergy/AdvReac Type Severity Reaction Status Date / Time Sulfa (Sulfonamide AdvReac Unknown Verified 12/29/24 16:58 Antibiotics) Childhood Review of Systems ROS Statement: Those systems with pertinent positive or pertinent negative responses have been documented in the HPI. ROS Other: All systems not noted in ROS Statement are negative. Past Medical History Past Medical History: Diabetes Mellitus, Hyperlipidemia, Hypertension, Thyroid Disorder History of Any Multi-Drug Resistant Organisms: None Reported Past Surgical History: Tonsillectomy Additional Past Surgical History / Comment(s): "eye muscle surgery" x2, kidney stone removed L ureter, d&c Past Anesthesia/Blood Transfusion Reactions: No Reported Reaction Past Psychological History: No Psychological Hx Reported Smoking Status: Never smoker Past Alcohol Use History: None Reported Past Drug Use History: None Reported General Exam - General Exam Comments Initial Comments: GENERAL: Patient is well-developed and well-nourished. Patient is nontoxic and well- hydrated and is in mild distress. ENT: Neck is soft and supple. No significant lymphadenopathy is noted. Oropharynx is clear. Moist mucous membranes. Neck has full range of motion without eliciting any pain. EYES: The sclera were anicteric and conjunctiva were pink and moist. Extraocular movements were intact and pupils were equal round and reactive to light. Eyelids were unremarkable. PULMONARY: Unlabored respirations. Good breath sounds bilaterally. No audible rales rhonchi or wheezing was noted. CARDIOVASCULAR: There is a regular rate and rhythm without any murmurs gallops or rubs. ABDOMEN: Soft and nontender with normal bowel sounds. SKIN: Skin is clear with no lesions or rashes and otherwise unremarkable. NEUROLOGIC: Patient is alert and oriented x 2. Cranial nerves II through XII are grossly intact. Motor and sensory are also intact. Normal speech, volume and content. Symmetrical smile. MUSCULOSKELETAL: Normal extremities with adequate strength and full range of motion. No lower extremity swelling or edema. No calf tenderness. LYMPHATICS: No significant lymphadenopathy is noted PSYCHIATRIC: Normal psychiatric evaluation. Limitations: altered mental status Course Vital Signs 12/29/24 12/29/24 15:35 18:05 Temperature 98.3 F Pulse Rate 68 79 Respiratory 18 18 Rate Blood Pressure 157/74 157/90 O2 Sat by Pulse 100 98 Oximetry Medical Decision Making - Medical Decision Making EKG is interpreted by myself. EKG shows a sinus bradycardia 56 bpm FL interval 262 QRS is 93 QT interval is 474 QTc is 465. Patient's EKG shows multiple PVCs Was pt. sent in by a medical professional or institution (LAMONTE Lewis, GROUT MACHINE OPERATOR, urgent care, hospital, or half-way...) When possible be specific @ -No Did you speak to anyone other than the patient for history (EMS, parent, family, police, friend...)? What history was obtained from this source @ -No Did you review nursing and triage notes (agree or disagree)? Why? @ -I reviewed and agree with nursing and triage notes Were old charts reviewed (outside hosp., previous admission, EMS record, old EKG, old radiological studies, urgent care reports/EKG's, half-way records)? Report findings @ -No old charts were reviewed Differential Diagnosis? @ -Urinary tract infection, pyelonephritis, urethritis, vaginitis, this is not an all-inclusive list EKG interpreted by me (3pts min.). @ -As above X-rays interpreted by me (1pt min.). @ -None done CT interpreted by me (1pt min.). @ -None done U/S interpreted by me (1pt. min.). @ -None done What testing was considered but not performed or refused? (CT, X-rays, U/S, labs)? Why? @ -None What meds were considered but not given or refused? Why? @ -None Did you discuss the management of the patient with other professionals (professionals i.e. LAMONTE Lewis, GROUT MACHINE OPERATOR, lab, RT, psych nurse, child protective services social worker, television news producer, teacher, mail officer, casework manager)? Give summary @ -I spoke with the EPS nurse and she thought the patient need to be transferred and is that the psychiatrist will patient will be transferred. Was smoking cessation discussed for >3mins.? @ -No Was critical care preformed (if so, how long)? @ -No Were there social determinants of health that impacted care today? How? (Homelessness, low income, unemployed, alcoholism, drug addiction, transportation, low edu. Level, literacy, decrease access to med. care, nursing home, rehab)? @ -No Was there de-escalation of care discussed even if they declined (Discuss DNR or withdrawal of care, Hospice)? DNR status @ -No What co-morbidities impacted this encounter? (DM, HTN, Smoking, COPD, CAD, Cancer, CVA, ARF, Chemo, Hep., AIDS, mental health diagnosis, sleep apnea, morbid obesity)? @ -None Was patient admitted / discharged? Hospital course, mention meds given and route, prescriptions, significant lab abnormalities, going to OR and other pertinent info. @ -Patient's lab work all came back normal. I went back and reevaluated the patient and she was talk about not taking her medications or eating because there was snake venom all over her food and medications. Patient states she does not trust the people there to get rid of the snakes and she does not want to go back there. We called her retirement and they stated that she is refusing her psych meds 59 becoming more more psychotic and she is not eating or taking her regular medications. At this point in time I had EPS come down to evaluate her patient was acting very psychotic and talking about all sorts of bizarre things and they thought the patient need to go to a geriatric psych unit and so I filled out a clinical certification and patient will be transferred Undiagnosed new problem with uncertain prognosis? @ -No Drug Therapy requiring intensive monitoring for toxicity (Heparin, Nitro, Insulin, Cardizem)? @ -No Were any procedures done? @ -No Diagnosis/symptom? @ -Acute psychosis Acute, or Chronic, or Acute on Chronic? @ -Default Uncomplicated (without systemic symptoms) or Complicated (systemic symptoms)? @ -Default Side effects of treatment? @ -Located Exacerbation, Progression, or Severe Exacerbation? @ -No Poses a threat to life or bodily function? How? (Chest pain, USA, AR, pneumonia, PE, COPD, DKA, ARF, appy, cholecystitis, CVA, Diverticulitis, Homicidal, Suicidal, threat to staff... and all critical care pts) @ -No - Lab Data Result diagrams: 12/29/24 16:30 12/29/24 16:30 Lab Results 12/29/24 12/29/24 12/29/24 Range/Units 16:30 16:30 16:30 WBC 9.04 (4.50-10.00) 10*3/uL RBC 4.11 (4.10-5.20) 10*6/uL Hgb 11.8 L (12.0-15.0) g/dL Hct 36.2 L (37.2-46.3) % MCV 88.1 (80.0-97.0) fL MCH 28.7 (27.0-32.0) pg MCHC 32.6 (32.0-37.0) g/dL Plt Count 119 L (140-440) 10*3/uL MPV 11.2 (9.5-12.2) fL Immature Gran % (Auto) 0.6 % Neutrophils % 69.0 % Lymphocytes % 22.3 % Monocytes % 5.6 % Eosinophils % 2.2 % Basophils % 0.3 % Immature Gran # 0.05 H (0.00-0.04) 10*3/uL Neutrophils # 6.23 (1.80-7.70) 10*3/uL Lymphocytes # 2.02 (0.90-5.00) 10*3/uL Monocytes # 0.51 (0.20-1.00) 10*3/uL Eosinophils # 0.20 (0.04-0.35) 10*3/uL Basophils # 0.03 (0.00-0.10) 10*3/uL PT 11.5 (10.0-12.5) sec INR 1.0 (<1.2) APTT 22.4 (22.0-30.0) sec Sodium 132 L (137-145) mmol/L Potassium 4.3 (3.5-5.1) mmol/L Chloride 99 (98-107) mmol/L Carbon Dioxide 27 (22-30) mmol/L Anion Gap 6 mmol/L BUN 16 (7-17) mg/dL Creatinine 0.54 (0.52-1.04) mg/dL Est GFR (CKD-EPI)AfAm >90 (>60 ml/min/1.73 sqM) Est GFR (CKD-EPI)NonAf >90 (>60 ml/min/1.73 sqM) Glucose 104 H (74-99) mg/dL POC Glucose (mg/dL) (70-110) mg/dL POC Glu [place] ID Calcium 9.3 (8.4-10.2) mg/dL Total Bilirubin 0.4 (0.2-1.3) mg/dL AST 28 (14-36) U/L ALT 40 H (4-34) U/L Alkaline Phosphatase 75 (38-126) U/L Troponin I (0.000-0.034) ng/mL Total Protein 6.5 (6.3-8.2) g/dL Albumin 3.5 (3.5-5.0) g/dL Urine Color Urine Appearance (Clear) Urine pH (5.0-8.0) Ur Specific [place] (1.001-1.035) Urine Protein (Negative) Urine Glucose (UA) (Negative) Urine Ketones (Negative) Urine Blood (Negative) Urine Nitrite (Negative) Urine Bilirubin (Negative) Urine Urobilinogen (<2.0) mg/dL Ur Leukocyte Esterase (Negative) Urine RBC (0-5) /hpf Urine WBC (0-5) /hpf Ur Squamous Epith Cells (0-4) /hpf Urine Mucus (None) /hpf Urine Opiates Screen (NotDetected) Ur Oxycodone Screen (NotDetected) Urine Methadone Screen (NotDetected) Ur Barbiturates Screen (NotDetected) U Tricyclic Antidepress (NotDetected) Ur Phencyclidine Scrn (NotDetected) Ur Amphetamines Screen (NotDetected) U Methamphetamines Scrn (NotDetected) U Benzodiazepines Scrn (NotDetected) Urine Cocaine Screen (NotDetected) U Marijuana (THC) Screen (NotDetected) 12/29/24 12/29/24 12/29/24 Range/Units 16:30 18:10 18:10 WBC (4.50-10.00) 10*3/uL RBC (4.10-5.20) 10*6/uL Hgb (12.0-15.0) g/dL Hct (37.2-46.3) % MCV (80.0-97.0) fL MCH (27.0-32.0) pg MCHC (32.0-37.0) g/dL Plt Count (140-440) 10*3/uL MPV (9.5-12.2) fL Immature Gran % (Auto) % Neutrophils % % Lymphocytes % % Monocytes % % Eosinophils % % Basophils % % Immature Gran # (0.00-0.04) 10*3/uL Neutrophils # (1.80-7.70) 10*3/uL Lymphocytes # (0.90-5.00) 10*3/uL Monocytes # (0.20-1.00) 10*3/uL Eosinophils # (0.04-0.35) 10*3/uL Basophils # (0.00-0.10) 10*3/uL PT (10.0-12.5) sec INR (<1.2) APTT (22.0-30.0) sec Sodium (137-145) mmol/L Potassium (3.5-5.1) mmol/L Chloride (98-107) mmol/L Carbon Dioxide (22-30) mmol/L Anion Gap mmol/L BUN (7-17) mg/dL Creatinine (0.52-1.04) mg/dL Est GFR (CKD-EPI)AfAm (>60 ml/min/1.73 sqM) Est GFR (CKD-EPI)NonAf (>60 ml/min/1.73 sqM) Glucose (74-99) mg/dL POC Glucose (mg/dL) (70-110) mg/dL POC Glu [place] ID Calcium (8.4-10.2) mg/dL Total Bilirubin (0.2-1.3) mg/dL AST (14-36) U/L ALT (4-34) U/L Alkaline Phosphatase (38-126) U/L Troponin I <0.012 (0.000-0.034) ng/mL Total Protein (6.3-8.2) g/dL Albumin (3.5-5.0) g/dL Urine Color Colorless Urine Appearance Clear (Clear) Urine pH 6.5 (5.0-8.0) Ur Specific [place] 1.012 (1.001-1.035) Urine Protein Negative (Negative) Urine Glucose (UA) Negative (Negative) Urine Ketones Negative (Negative) Urine Blood Trace H (Negative) Urine Nitrite Negative (Negative) Urine Bilirubin Negative (Negative) Urine Urobilinogen <2.0 (<2.0) mg/dL Ur Leukocyte Esterase Moderate H (Negative) Urine RBC 5 (0-5) /hpf Urine WBC 16 H (0-5) /hpf Ur Squamous Epith Cells <1 (0-4) /hpf Urine Mucus Rare H (None) /hpf Urine Opiates Screen Not Detected (NotDetected) Ur Oxycodone Screen Not Detected (NotDetected) Urine Methadone Screen Not Detected (NotDetected) Ur Barbiturates Screen Not Detected (NotDetected) U Tricyclic Antidepress Not Detected (NotDetected) Ur Phencyclidine Scrn Not Detected (NotDetected) Ur Amphetamines Screen Not Detected (NotDetected) U Methamphetamines Scrn Not Detected (NotDetected) U Benzodiazepines Scrn Detected H (NotDetected) Urine Cocaine Screen Not Detected (NotDetected) U Marijuana (THC) Screen Not Detected (NotDetected) 12/29/24 Range/Units 20:06 WBC (4.50-10.00) 10*3/uL RBC (4.10-5.20) 10*6/uL Hgb (12.0-15.0) g/dL Hct (37.2-46.3) % MCV (80.0-97.0) fL MCH (27.0-32.0) pg MCHC (32.0-37.0) g/dL Plt Count (140-440) 10*3/uL MPV (9.5-12.2) fL Immature Gran % (Auto) % Neutrophils % % Lymphocytes % % Monocytes % % Eosinophils % % Basophils % % Immature Gran # (0.00-0.04) 10*3/uL Neutrophils # (1.80-7.70) 10*3/uL Lymphocytes # (0.90-5.00) 10*3/uL Monocytes # (0.20-1.00) 10*3/uL Eosinophils # (0.04-0.35) 10*3/uL Basophils # (0.00-0.10) 10*3/uL PT (10.0-12.5) sec INR (<1.2) APTT (22.0-30.0) sec Sodium (137-145) mmol/L Potassium (3.5-5.1) mmol/L Chloride (98-107) mmol/L Carbon Dioxide (22-30) mmol/L Anion Gap mmol/L BUN (7-17) mg/dL Creatinine (0.52-1.04) mg/dL Est GFR (CKD-EPI)AfAm (>60 ml/min/1.73 sqM) Est GFR (CKD-EPI)NonAf (>60 ml/min/1.73 sqM) Glucose (74-99) mg/dL POC Glucose (mg/dL) 97 (70-110) mg/dL POC Glu [place]man ID vincent Gore Calcium (8.4-10.2) mg/dL Total Bilirubin (0.2-1.3) mg/dL AST (14-36) U/L ALT (4-34) U/L Alkaline Phosphatase (38-126) U/L Troponin I (0.000-0.034) ng/mL Total Protein (6.3-8.2) g/dL Albumin (3.5-5.0) g/dL Urine Color Urine Appearance (Clear) Urine pH (5.0-8.0) Ur Specific [place] (1.001-1.035) Urine Protein (Negative) Urine Glucose (UA) (Negative) Urine Ketones (Negative) Urine Blood (Negative) Urine Nitrite (Negative) Urine Bilirubin (Negative) Urine Urobilinogen (<2.0) mg/dL Ur Leukocyte Esterase (Negative) Urine RBC (0-5) /hpf Urine WBC (0-5) /hpf Ur Squamous Epith Cells (0-4) /hpf Urine Mucus (None) /hpf Urine Opiates Screen (NotDetected) Ur Oxycodone Screen (NotDetected) Urine Methadone Screen (NotDetected) Ur Barbiturates Screen (NotDetected) U Tricyclic Antidepress (NotDetected) Ur Phencyclidine Scrn (NotDetected) Ur Amphetamines Screen (NotDetected) U Methamphetamines Scrn (NotDetected) U Benzodiazepines Scrn (NotDetected) Urine Cocaine Screen (NotDetected) U Marijuana (THC) Screen (NotDetected) Disposition Clinical Impression: Acute psychosis Disposition: TRANSFER TO PSYCH HOSP/UNIT Instructions (If sedation given, give patient instructions): Dysuria (ED) Is patient prescribed a controlled substance at d/c from ED?: No Referrals: Nonstaff,Physician [Primary Care Provider] - 1-2 days Time of Disposition: 19:10
[2024-12-29 16:42] LABS: Basophils # (A) 0.03 10*3/uL (0.00-0.10); Basophils % (A) 0.3 %; Eosinophils % (A) 2.2 %; HCT 36.2 % (37.2-46.3); HGB 11.8 g/dL (12.0-15.0); Lymphocytes # (A) 2.02 10*3/uL (0.90-5.00); Lymphocytes % (A) 22.3 %; MCH 28.7 pg (27.0-32.0); MCHC 32.6 g/dL (32.0-37.0); MCV 88.1 fL (80.0-97.0); Mean Platelet Volume 11.2 fL (9.5-12.2); Monocytes # (A) 0.51 10*3/uL (0.20-1.00); Monocytes % (A) 5.6 %; Neutrophils # (A) 6.23 10*3/uL (1.80-7.70); RBC 4.11 10*6/uL (4.10-5.20); RDW 12.6 % (11.5-14.5); WBC 9.04 10*3/uL (4.50-10.00)
--- NOTE | 2024-12-29 16:51 | XR ---
EXAMINATION TYPE: XR chest 2V DATE OF EXAM: 12/29/2024 4:47 PM COMPARISON: 12/26/2024 CLINICAL INDICATION: Female, 74 years old with history of altered mental status, TECHNIQUE: XR chest 2V view(s) obtained. FINDINGS: The heart size is normal. The pulmonary vasculature is normal. The lungs are clear. IMPRESSION: 1. No acute pulmonary process. [facility], , 12/29/2024 4:48 PM
[2024-12-29 16:56] LABS: ALT 40 U/L (4-34); AST 28 U/L (14-36); African American GFR (CKD) >90 (>60 ml/min/1.73 sqM); Albumin 3.5 g/dL (3.5-5.0); Alkaline Phosphatase 75 U/L (38-126); Anion Gap 6 mmol/L; Blood Urea Nitrogen 16 mg/dL (7-17); Calcium 9.3 mg/dL (8.4-10.2); Carbon Dioxide 27 mmol/L (22-30); Chloride 99 mmol/L (98-107); Glucose 104 mg/dL (74-99); Non-African American GFR(CKD) >90 (>60 ml/min/1.73 sqM); Partial Thromboplastin Time 22.4 sec (22.0-30.0); Potassium 4.3 mmol/L (3.5-5.1); Prothrombin Time 11.5 sec (10.0-12.5); Sodium 132 mmol/L (137-145); Total Bilirubin 0.4 mg/dL (0.2-1.3); Total Protein 6.5 g/dL (6.3-8.2)
[2024-12-29] MEDS: SODIUM CHLORIDE 0.9% 500 ML 500 ML IV ONE ×2 (17:03→20:16)
[2024-12-29 17:37] LABS: Platelet Count 119 10*3/uL (140-440)
[2024-12-29 18:35] LABS: Appearance,Urine Clear (Clear); Bilirubin,Urine Negative (Negative); Blood,Urine Trace (Negative); Color,Urine Colorless; Glucose,Urine (UA) Negative (Negative); Ketones,Urine Negative (Negative); Leukocyte Esterase,Urine Moderate (Negative); Mucus,Urine Rare /hpf; Nitrite,Urine Negative (Negative); PH, Urine 6.5 (5.0-8.0); Protein,Urine Negative (Negative); RBC,Urine 5 /hpf (0-5); Specific Gravity,Urine 1.012 (1.001-1.035); Squamous Epithelial Cell,Urine <1 /hpf (0-4); Urobilinogen,Urine <2.0 mg/dL (<2.0); WBC,Urine 16 /hpf (0-5)
[2024-12-29 18:39] LABS: Amphetamine Screen,Urine Not Detected (NotDetected); Barbiturate Screen,Urine Not Detected (NotDetected); Benzodiazepines Screen,Urine Detected (NotDetected); Cocaine Screen,Urine Not Detected (NotDetected); Methadone Screen, Urine Not Detected (NotDetected); Opiate Screen,Urine Not Detected (NotDetected); Oxycodone Screen, Urine Not Detected (NotDetected); Phencyclidine Screen,Urine Not Detected (NotDetected); Tricyclic Antidepressant,Urine Not Detected (NotDetected); Urn Cannabinoid Scrn Not Detected (NotDetected)
[2024-12-29 20:07] LABS: Glucose,Whole Blood 97 mg/dL (70-110)
[2024-12-30 22:11] VITALS: BP 158/63; PULSE 67; RESP 18; TEMP 98.2
== END 2024-12-30 22:11 ==
LOC: EC 15:24
DX: F23 Brief psychotic disorder (principal); Z88.2 Allergy status to sulfonamides
CPT/HCPCS: 36415; 71046; 80053; 80306; 81001; 82075; 84484; 85025; 85610; 85730; 87635; 93005; 96360; 96361; 99285

== ENCOUNTER 2025-02-08 16:13 | Emergency (ER) | payer MEDICARE ==
--- NOTE | 2025-02-08 16:54 | ED ---
General Adult HPI <Silvia Burger Varun - Last Filed: 02/09/25 05:21> <MadelynTae D - Last Filed: 02/09/25 14:42> - General Source: EMS Mode of arrival: EMS Limitations: altered mental status <Sharlene Velez - Last Filed: 02/10/25 00:55> - General Chief complaint: Psychiatric Symptoms Stated complaint: AMS Time Seen by Provider: 02/08/25 16:16 - History of Present Illness Initial comments: Patient is a 75-year-old female past medical history of psychosis, hypertension, diabetes, Dementia, thyroid disorder presenting today for psychiatric evaluation from her assisted living facility. History is limited by patient's dementia. She is unsure why she is here. She states she thinks it is because "they changed my medications". The note accompanying patient from [facility] where patient resides states the patient requires a psychiatric valuation. Presents with a note stating the patient has been "screaming the Star sp[place] all night, stripping naked, talking to Jersey Petersen, doing things because the doctor in her head told her to, disrupting and agitating the rest of the residents at her facility, sitting at the room staring at the wall and screaming bible verses, dropping her pants and peeing on the floor because "Dr. Shetty or Dr. Munoz are injecting water into her body" screaming and repeating things over and over very loudly," the note additionally states the patient needs a psych evaluation. Patient denies any chest pain, shortness of breath or abdominal pain. (Sharlene Velez) - Related Data Home Medications Medication Instructions Recorded Confirmed Atorvastatin [Lipitor] 10 mg PO HS@199909/25/24 02/08/25 FLUoxetine HCL [PROzac] 20 mg PO DAILY@79909/25/24 02/08/25 lisinopriL [Zestril] 20 mg PO DAILY@79909/25/24 02/08/25 Albuterol Inhaler [Ventolin Hfa 1 puff INHALATION RT-QID PRN 12/26/24 02/08/25 Inhaler] Fluocinolone Acetonide [Synalar] 1 applic TOPICAL DAILY PRN 12/26/24 02/08/25 Sennosides/Docusate Sodium [Senna 1 - 2 tab PO HS PRN 12/26/24 02/08/25 Plus 8.6-50 mg Tablet] Haloperidol Decanoate [Haldol D] 50 mg IM QMONTHLY 02/08/25 02/08/25 Linagliptin [Tradjenta] 5 mg PO DAILY@0800 02/08/25 02/08/25 haloperidoL [Haldol] 2 mg PO BID@0800,1600 02/08/25 02/08/25 Allergies Allergy/AdvReac Type Severity Reaction Status Date / Time Sulfa (Sulfonamide AdvReac Unknown Verified 02/08/25 17:25 Antibiotics) Childhood Review of Systems ROS Other: All systems not noted in ROS Statement are negative. <Silvia Burger - Last Filed: 02/09/25 05:21> ROS Other: All systems not noted in ROS Statement are negative. <Tae Joshi - Last Filed: 02/09/25 14:42> ROS Other: All systems not noted in ROS Statement are negative. Limitations: ROS unobtainable due to patients medical condition <Sharlene Velez - Last Filed: 02/10/25 00:55> ROS Statement: Those systems with pertinent positive or pertinent negative responses have been documented in the HPI. Past Medical History Past Medical History: Dementia, Diabetes Mellitus, Hyperlipidemia, Hypertension, Osteoarthritis (OA), Thyroid Disorder Additional Past Medical History / Comment(s): Myalgia History of Any Multi-Drug Resistant Organisms: None Reported Past Surgical History: Tonsillectomy Additional Past Surgical History / Comment(s): cataracts, ovarian cysts Past Anesthesia/Blood Transfusion Reactions: No Reported Reaction Past Psychological History: No Psychological Hx Reported Smoking Status: Never smoker Past Alcohol Use History: None Reported Past Drug Use History: None Reported <Sharlene Velez - Last Filed: 02/10/25 00:55> General Exam Limitations: altered mental status <Sharlene Velez - Last Filed: 02/10/25 00:55> - General Exam Comments Initial Comments: PE: CONSTITUTIONAL: No apparent distress, chronically ill-appearing, nontoxic SKIN: Warm, dry, no jaundice, hives or petechiae EYES: Pupils are equally round, extraocular movements intact without nystagmus, clear conjunctiva, non-icteric sclera HENT: Normocephalic, atraumatic, moist mucus membranes, oropharynx clear without exudates NECK: , Full range of motion, normal appearance PULMONARY: Clear to auscultation without wheezes, rhonchi, or rales, normal excursion, no accessory muscle use and no stridor CARDIOVASCULAR: Regular rate, rhythm, normal S1 and S2. No appreciated murmurs, rubs or gallops. Strong radial pulses with intact distal perfusion. No lower extremity edema GASTROINTESTINAL: Soft, active bowel sounds throughout, non-tender, non- distended, no palpable masses, no rebound or guarding. No hepatosplenomegaly GENITOURINARY: MUSCULOSKELETAL: Extremities have no gross deformity, no edema, redness, or swelling. NEUROLOGIC:_a/o x 2-3 things today is January 2026, unsure of exact day, GCS 15,clear speech. Moves all extremities x 4 without motor or sensory deficit, resting tremor PSYCHIATRIC:_normal mood and affect, thought process is overall linear, calm and cooperative (Sharlene Velez) Course Vital Signs 02/08/25 02/08/25 02/08/25 16:15 17:16 17:42 Temperature 99.1 F Pulse Rate 70 77 78 Respiratory 20 18 18 Rate Blood Pressure 183/87 187/85 166/74 O2 Sat by Pulse 97 97 97 Oximetry 02/09/25 02/09/25 02/09/25 02:00 02:12 02:22 Temperature 97.9 F 98.4 F Pulse Rate 124 H 133 H 89 Respiratory 18 18 Rate Blood Pressure 193/112 169/77 168/91 O2 Sat by Pulse 97 97 Oximetry 02/09/25 02/09/25 02/09/25 03:42 07:00 08:44 Temperature 98.1 F Pulse Rate 97 67 90 Respiratory 18 18 20 Rate Blood Pressure 137/67 115/55 O2 Sat by Pulse 97 97 96 Oximetry 02/09/25 02/09/25 02/09/25 08:46 12:00 12:59 Temperature 98.0 F Pulse Rate 78 75 Respiratory 20 16 Rate Blood Pressure 143/65 116/62 O2 Sat by Pulse 97 Oximetry 02/09/25 02/09/25 14:00 18:53 Temperature 98.5 F Pulse Rate 75 71 Respiratory 20 20 Rate Blood Pressure 134/74 O2 Sat by Pulse 96 97 Oximetry EKG Findings - EKG Comments: EKG Findings:: Sinus rhythm, rate 69 bpm intervals in acceptable limits, no significant ST elevations or depressions, no arrhythmia <Sharlene Velez - Last Filed: 02/10/25 00:55> Medical Decision Making - Lab Data Result diagrams: 02/08/25 17:01 02/08/25 17:01 <Silvia Burger - Last Filed: 02/09/25 05:21> - Lab Data Result diagrams: 02/08/25 17:01 02/08/25 17:01 <Tae Joshi - Last Filed: 02/09/25 14:42> - Lab Data Result diagrams: 02/08/25 17:01 02/08/25 17:01 <Sharlene Velez - Last Filed: 02/10/25 00:55> - Medical Decision Making Patient had an EKG completed at 1:59 AM which demonstrates sinus tachycardia with a rate of 130. HI interval 140. QRS 86. QTc of 384. No acute ST segment elevations or depressions (Silvia Burger) Patient care signed out to me by previous shift physician, Dr. Velez. Briefly, patient is from [facility] presents for mental health evaluation. Patient was medically cleared prior to my shift. Plan at signout was to follow-up with pending EPS recommendations. I was notified by EPS at 2:41 PM that patient will be a geriatric psychiatry transfer. Clinical certification completed. (Tae Joshi) Was pt. sent in by a medical professional or institution (, PA, DRY KILN OPERATOR, urgent care, hospital, or detention...) When possible be specific @Patient was sent in by [employer] Did you speak to anyone other than the patient for history (EMS, parent, family, police, friend...)? What history was obtained from this source @ -No I did attempt to call [employer] and there was no answer, I reviewed notes sent with patient from her facility Did you review nursing and triage notes (agree or disagree)? Why? @ -I reviewed nursing and triage notes Were old charts reviewed (outside hosp., previous admission, EMS record, old EKG, old radiological studies, urgent care reports/EKG's, detention records)? Report findings @ -Medical records reviewed reviewed discharge summary from 12/26/2024, patient had been admitted for psychiatric for acute cephalopathy and psychosis, per note she had presented from [facility] at that time due to refusing to take her medications eat drink or perform her daily activities of daily living. Increasing paranoia. At that time patient did have a urine a UTI with nitrites and leukocyte esterase. She was seen by psychiatry and her risperidone was increased. It was thought the patient's UTI may may have led to her mental status changes. She was discharged after returning to baseline Differential Diagnosis (chest pain, altered mental status, abdominal pain women, abdominal pain men, vaginal bleeding, weakness, fever, dyspnea, syncope, headache, dizziness, GI bleed, back pain, seizure, CVA, palpatations, mental health, musculoskeletal)? Differential diagnosis remains broad however top considerations include: Depression, anxiety, bipolar, psychosis, schizophrenia, borderline personality, situational depression, adjustment disorder, behavioral disorder, brain tumor, malingering, substance abuse, encephalopathy, medication reaction, dementia, hypothyroidism, electrolyte abnormality, UTI, degenerative neurologic disorder, lupus.... This is not meant to be all-inclusive list EKG interpreted by me (3pts min.). @ -As above X-rays interpreted by me (1pt min.). @ -None done CT interpreted by me (1pt min.). @ -Personally reviewed CT brain I see no evidence of hemorrhage or mass effect I agree with radiologist interpretation U/S interpreted by me (1pt. min.). @ -None done What testing was considered but not performed or refused? (CT, X-rays, U/S, labs)? Why? @ -None What meds were considered but not given or refused? Why? @ -None Did you discuss the management of the patient with other professionals (professionals i.e. , PA, DRY KILN OPERATOR, lab, RT, psych nurse, aids social worker, mink slicer, teacher, technology officer, upper caser)? Give summary @Case was discussed with Dr. Cole, see below for details Was smoking cessation discussed for >3mins.? @ -No Was critical care preformed (if so, how long)? @ -No Were there social determinants of health that impacted care today? How? (Homelessness, low income, unemployed, alcoholism, drug addiction, transportation, low edu. Level, literacy, decrease access to med. care, prison, rehab)? @ -No Was there de-escalation of care discussed even if they declined (Discuss DNR or withdrawal of care, Hospice)? @ -No What co-morbidities impacted this encounter? (DM, HTN, Smoking, COPD, CAD, Cance r, CVA, ARF, Chemo, Hep., AIDS, mental health diagnosis, sleep apnea, morbid obesity)? Hypertension diabetes, dementia Was patient admitted / discharged? Hospital course, mention meds given and route, prescriptions, significant lab abnormalities, going to OR and other pertinent info. @ -Patient is a 75-year-old female history as above presenting today for psychiatric evaluation from [facility]. History is limited due to patient's dementia. She states she is here because "they stopped some of my medications". She has a resting tremor. Otherwise no neurologic deficits. Physical exam is overall benign. Due to limited history gathering and patient's recent admission with similar symptoms and UTI will obtain UA, additionally obtain CT brain CBC, CMP and TSH as well as EKG. If cleared will have psychiatric consult placed Labs are significant for mild leukocytosis,White blood cell count 14.54, additionally mild hyponatremia sodium 131, appears chronic, previously on 12/29/24, was 132, I do not suspect that this is causing patient's altered mental status, UA showed negative nitrates with a small leukocyte esterase and 25 white blood cells with rare bacteria. Potentially negative other UTI, patient will receive Rocephin and be started on Keflex. I did consider patient for admission due to psychotic symptoms with prior UTI however at that time she had a positive nitrites. I discussed patient's case with Dr. Cole, however he states that this is unlikely the cause of the patient's symptoms and patient should be evaluated by psychiatry for psychiatric admit. Patient signed out to oncoming physician pending EPS evaluation for psychiatric consultation. Undiagnosed new problem with uncertain prognosis? @ -No Drug Therapy requiring intensive monitoring for toxicity (Heparin, Nitro, Insulin, Cardizem)? @ -No Were any procedures done? @ -No Diagnosis/symptom? acute psychosis. UTI Acute, or Chronic, or Acute on Chronic? @ acute Uncomplicated (without systemic symptoms) or Complicated (systemic symptoms)? @complicated Side effects of treatment? @ -No Exacerbation, Progression, or Severe Exacerbation? @ -No (Sharlene Veelz) - Lab Data Lab Results 02/08/25 02/08/25 02/08/25 Range/Units 16:53 17:01 17:01 WBC 14.54 H (4.50-10.00) 10*3/uL RBC 4.71 (4.10-5.20) 10*6/uL Hgb 13.8 (12.0-15.0) g/dL Hct 40.6 (37.2-46.3) % MCV 86.2 (80.0-97.0) fL MCH 29.3 (27.0-32.0) pg MCHC 34.0 (32.0-37.0) g/dL Plt Count 223 (140-440) 10*3/uL MPV 9.9 (9.5-12.2) fL Immature Gran % (Auto) 0.2 % Neutrophils % 75.5 % Lymphocytes % 16.7 % Monocytes % 5.8 % Eosinophils % 1.5 % Basophils % 0.3 % Immature Gran # 0.03 (0.00-0.04) 10*3/uL Neutrophils # 10.97 H (1.80-7.70) 10*3/uL Lymphocytes # 2.43 (0.90-5.00) 10*3/uL Monocytes # 0.84 (0.20-1.00) 10*3/uL Eosinophils # 0.22 (0.04-0.35) 10*3/uL Basophils # 0.05 (0.00-0.10) 10*3/uL PT 11.0 (10.0-12.5) sec INR 1.0 (<1.2) APTT 26.1 (22.0-30.0) sec Sodium (137-145) mmol/L Potassium (3.5-5.1) mmol/L Chloride (98-107) mmol/L Carbon Dioxide (22-30) mmol/L Anion Gap mmol/L BUN (7-17) mg/dL Creatinine (0.52-1.04) mg/dL Est GFR (CKD-EPI)AfAm (>60 ml/min/1.73 sqM) Est GFR (CKD-EPI)NonAf (>60 ml/min/1.73 sqM) Glucose (74-99) mg/dL POC Glucose (mg/dL) (70-110) mg/dL POC Glu [employer] Operator ID Calcium (8.4-10.2) mg/dL Total Bilirubin (0.2-1.3) mg/dL AST (14-36) U/L ALT (4-34) U/L Alkaline Phosphatase (38-126) U/L Total Protein (6.3-8.2) g/dL Albumin (3.5-5.0) g/dL TSH (0.465-4.680) mIU/L Urine Color Colorless Urine Appearance Clear (Clear) Urine pH 7.5 (5.0-8.0) Ur Specific Smoaks 1.003 (1.001-1.035) Urine Protein Negative (Negative) Urine Glucose (UA) Negative (Negative) Urine Ketones Negative (Negative) Urine Blood Negative (Negative) Urine Nitrite Negative (Negative) Urine Bilirubin Negative (Negative) Urine Urobilinogen <2.0 (<2.0) mg/dL Ur Leukocyte Esterase Small H (Negative) Urine RBC 1 (0-5) /hpf Urine WBC 25 H (0-5) /hpf Ur Squamous Epith Cells <1 (0-4) /hpf Urine Bacteria Rare H (None) /hpf Influenza Type A (PCR) (Not Detectd) Influenza Type B (PCR) (Not Detectd) RSV (PCR) (Not Detectd) SARS-CoV-2 (PCR) (Not Detectd) 02/08/25 02/08/25 02/09/25 Range/Units 17:01 17:04 01:55 WBC (4.50-10.00) 10*3/uL RBC (4.10-5.20) 10*6/uL Hgb (12.0-15.0) g/dL Hct (37.2-46.3) % MCV (80.0-97.0) fL MCH (27.0-32.0) pg MCHC (32.0-37.0) g/dL Plt Count (140-440) 10*3/uL MPV (9.5-12.2) fL Immature Gran % (Auto) % Neutrophils % % Lymphocytes % % Monocytes % % Eosinophils % % Basophils % % Immature Gran # (0.00-0.04) 10*3/uL Neutrophils # (1.80-7.70) 10*3/uL Lymphocytes # (0.90-5.00) 10*3/uL Monocytes # (0.20-1.00) 10*3/uL Eosinophils # (0.04-0.35) 10*3/uL Basophils # (0.00-0.10) 10*3/uL PT (10.0-12.5) sec INR (<1.2) APTT (22.0-30.0) sec Sodium 131 L (137-145) mmol/L Potassium 4.1 (3.5-5.1) mmol/L Chloride 94 L (98-107) mmol/L Carbon Dioxide 26 (22-30) mmol/L Anion Gap 11 mmol/L BUN 13 (7-17) mg/dL Creatinine 0.68 (0.52-1.04) mg/dL Est GFR (CKD-EPI)AfAm >90 (>60 ml/min/1.73 sqM) Est GFR (CKD-EPI)NonAf 85 (>60 ml/min/1.73 sqM) Glucose 103 H (74-99) mg/dL POC Glucose (mg/dL) 108 206 H (70-110) mg/dL POC Glu [employer] Operator ID Khadijah Kessler Calcium 9.5 (8.4-10.2) mg/dL Total Bilirubin 0.5 (0.2-1.3) mg/dL AST 25 (14-36) U/L ALT 19 (4-34) U/L Alkaline Phosphatase 97 (38-126) U/L Total Protein 7.7 (6.3-8.2) g/dL Albumin 4.5 (3.5-5.0) g/dL TSH 2.470 (0.465-4.680) mIU/L Urine Color Urine Appearance (Clear) Urine pH (5.0-8.0) Ur Specific Smoaks (1.001-1.035) Urine Protein (Negative) Urine Glucose (UA) (Negative) Urine Ketones (Negative) Urine Blood (Negative) Urine Nitrite (Negative) Urine Bilirubin (Negative) Urine Urobilinogen (<2.0) mg/dL Ur Leukocyte Esterase (Negative) Urine RBC (0-5) /hpf Urine WBC (0-5) /hpf Ur Squamous Epith Cells (0-4) /hpf Urine Bacteria (None) /hpf Influenza Type A (PCR) (Not Detectd) Influenza Type B (PCR) (Not Detectd) RSV (PCR) (Not Detectd) SARS-CoV-2 (PCR) (Not Detectd) 02/09/25 Range/Units 15:12 WBC (4.50-10.00) 10*3/uL RBC (4.10-5.20) 10*6/uL Hgb (12.0-15.0) g/dL Hct (37.2-46.3) % MCV (80.0-97.0) fL MCH (27.0-32.0) pg MCHC (32.0-37.0) g/dL Plt Count (140-440) 10*3/uL MPV (9.5-12.2) fL Immature Gran % (Auto) % Neutrophils % % Lymphocytes % % Monocytes % % Eosinophils % % Basophils % % Immature Gran # (0.00-0.04) 10*3/uL Neutrophils # (1.80-7.70) 10*3/uL Lymphocytes # (0.90-5.00) 10*3/uL Monocytes # (0.20-1.00) 10*3/uL Eosinophils # (0.04-0.35) 10*3/uL Basophils # (0.00-0.10) 10*3/uL PT (10.0-12.5) sec INR (<1.2) APTT (22.0-30.0) sec Sodium (137-145) mmol/L Potassium (3.5-5.1) mmol/L Chloride (98-107) mmol/L Carbon Dioxide (22-30) mmol/L Anion Gap mmol/L BUN (7-17) mg/dL Creatinine (0.52-1.04) mg/dL Est GFR (CKD-EPI)AfAm (>60 ml/min/1.73 sqM) Est GFR (CKD-EPI)NonAf (>60 ml/min/1.73 sqM) Glucose (74-99) mg/dL POC Glucose (mg/dL) (70-110) mg/dL POC Glu [employer] Operator ID Calcium (8.4-10.2) mg/dL Total Bilirubin (0.2-1.3) mg/dL AST (14-36) U/L ALT (4-34) U/L Alkaline Phosphatase (38-126) U/L Total Protein (6.3-8.2) g/dL Albumin (3.5-5.0) g/dL TSH (0.465-4.680) mIU/L Urine Color Urine Appearance (Clear) Urine pH (5.0-8.0) Ur Specific Smo[place] (1.001-1.035) Urine Protein (Negative) Urine Glucose (UA) (Negative) Urine Ketones (Negative) Urine Blood (Negative) Urine Nitrite (Negative) Urine Bilirubin (Negative) Urine Urobilinogen (<2.0) mg/dL Ur Leukocyte Esterase (Negative) Urine RBC (0-5) /hpf Urine WBC (0-5) /hpf Ur Squamous Epith Cells (0-4) /hpf Urine Bacteria (None) /hpf Influenza Type A (PCR) Not Detected (Not Detectd) Influenza Type B (PCR) Not Detected (Not Detectd) RSV (PCR) Not Detected (Not Detectd) SARS-CoV-2 (PCR) Not Detected (Not Detectd) Disposition <Silvia Burger A - Last Filed: 02/09/25 05:21> <Tae Joshi - Last Filed: 02/09/25 14:42> <Sharlene Velez - Last Filed: 02/10/25 00:55> Clinical Impression: Encounter for psychiatric assessment Disposition: TRANSFER TO PSYCH HOSP/UNIT Condition: Fair Referrals: Nonstaff,Physician [Primary Care Provider] - 1-2 days
[2025-02-08 17:06] LABS: Basophils # (A) 0.05 10*3/uL (0.00-0.10); Basophils % (A) 0.3 %; Eosinophils # (A) 0.22 10*3/uL (0.04-0.35); Eosinophils % (A) 1.5 %; HCT 40.6 % (37.2-46.3); HGB 13.8 g/dL (12.0-15.0); Lymphocytes # (A) 2.43 10*3/uL (0.90-5.00); Lymphocytes % (A) 16.7 %; MCH 29.3 pg (27.0-32.0); MCHC 34.0 g/dL (32.0-37.0); MCV 86.2 fL (80.0-97.0); Monocytes # (A) 0.84 10*3/uL (0.20-1.00); Monocytes % (A) 5.8 %; Neutrophils # (A) 10.97 10*3/uL (1.80-7.70); Neutrophils % (A) 75.5 %; Platelet Count 223 10*3/uL (140-440); RBC 4.71 10*6/uL (4.10-5.20); RDW 12.4 % (11.5-14.5); WBC 14.54 10*3/uL (4.50-10.00)
[2025-02-08 17:06] LABS: Bacteria,Urine Rare /hpf; Bilirubin,Urine Negative (Negative); Blood,Urine Negative (Negative); Color,Urine Colorless; Glucose,Urine (UA) Negative (Negative); Ketones,Urine Negative (Negative); Leukocyte Esterase,Urine Small (Negative); Nitrite,Urine Negative (Negative); PH, Urine 7.5 (5.0-8.0); Protein,Urine Negative (Negative); RBC,Urine 1 /hpf (0-5); Specific Gravity,Urine 1.003 (1.001-1.035); Squamous Epithelial Cell,Urine <1 /hpf (0-4); Urobilinogen,Urine <2.0 mg/dL (<2.0); WBC,Urine 25 /hpf (0-5)
[2025-02-08 17:06] LABS: Glucose,Whole Blood 108 mg/dL (70-110)
[2025-02-08 17:23] LABS: INR 1.0 (<1.2); Partial Thromboplastin Time 26.1 sec (22.0-30.0); Prothrombin Time 11.0 sec (10.0-12.5)
[2025-02-08 17:33] LABS: ALT 19 U/L (4-34); AST 25 U/L (14-36); African American GFR (CKD) >90 (>60 ml/min/1.73 sqM); Albumin 4.5 g/dL (3.5-5.0); Alkaline Phosphatase 97 U/L (38-126); Anion Gap 11 mmol/L; Blood Urea Nitrogen 13 mg/dL (7-17); Calcium 9.5 mg/dL (8.4-10.2); Carbon Dioxide 26 mmol/L (22-30); Chloride 94 mmol/L (98-107); Glucose 103 mg/dL (74-99); Non-African American GFR(CKD) 85 (>60 ml/min/1.73 sqM); Potassium 4.1 mmol/L (3.5-5.1); Sodium 131 mmol/L (137-145); Total Protein 7.7 g/dL (6.3-8.2)
--- NOTE | 2025-02-08 17:46 | CT ---
EXAMINATION TYPE: CT brain wo con CT DLP: 1112.4 mGycm, Automated exposure control for dose reduction was used. DATE OF EXAM: 02/08/2025 5:34 PM COMPARISON: CT brain 12/26/2024 CLINICAL INDICATION:Female, 75 years old with history of here from assist living 4 psych eval, poss A MS, AMS/psych eval. TECHNIQUE: Brain: Multiple axial CT images of the brain were obtained without IV contrast. . Coronal and sagitta l reformats reviewed. FINDINGS: Brain: Extra-axial spaces: No abnormal extra-axial fluid collections. Ventricular system: Within normal limits Cerebral parenchyma: Cerebral atrophy. No acute intraparenchymal hemorrhage or mass effect. The lópez -white junction is well differentiated. Scattered hypoattenuating areas are seen within the periventr icular white matter. Tiny remote lacunar injuries within the bilateral inferior basal ganglia versus prominent perivascular spaces. Cerebellum: Unremarkable. Mass effect: No evidence of midline shift. Intracranial vasculature: Atherosclerotic calcifications of the intracranial vessels. Soft tissues: Normal. Calvarium/osseous structures: No depressed skull fracture. Paranasal sinuses and mastoid air cells: Clear Visualized orbits: Bilateral aphakia IMPRESSION: 1. No acute intracranial process. 2. Nonspecific mild white matter changes, likely secondary to chronic small vessel ischemic disease. 3. Redemonstration of tiny remote lacunar injuries within the bilateral inferior basal ganglia versus prominent perivascular spaces. [facility], , 02/08/2025 5:44 PM
[2025-02-08] MEDS: cefTRIAXone IN SWFI 1,000 MG/10 ML SYRINGE IVP STA (19:39)
[2025-02-08] MEDS ORDERED: ALBUTEROL NEBULIZED 2.5 MG/3 ML INHALATION PRN (21:41)
[2025-02-08] MEDS ORDERED: SENNOSIDES-DOCUSATE SODIUM 1 EACH TAB PO PRN (21:41)
[2025-02-08] MEDS: SODIUM CHLORIDE 0.9% 500 ML 500 ML IV ONE (21:45)
[2025-02-08] MEDS: LORazepam 1 MG TAB PO STA (23:53)
[2025-02-09 01:57] LABS: Glucose,Whole Blood 206 mg/dL (70-110)
[2025-02-09] MEDS: METOPROLOL TARTRATE 5 MG/5 ML VIAL IVP STA (02:18)
[2025-02-09] MEDS ORDERED: TRIAMCINOLONE ACET 0.1% OINTMENT 80 GM TUBE TOPICAL PRN (09:00)
[2025-02-09] MEDS: LINAGLIPTIN 5 MG TABLET PO SCH (09:02)
[2025-02-09] MEDS: CEPHALEXIN 500 MG CAP PO SCH (09:03)
[2025-02-09 14:42] VITALS: RESP 20
[2025-02-09 15:59] LABS: RSV Not Detected (Not Detectd)
[2025-02-09 18:54] VITALS: BP 134/74; PULSE 71; TEMP 98.5
[2025-02-09] MEDS: ATORVASTATIN 10 MG TAB PO SCH (19:30)
== END 2025-02-09 22:08 ==
LOC: EC 16:13
DX: Z00.8 Encounter for other general examination (principal); I10 Essential (primary) hypertension; E11.9 Type 2 diabetes mellitus without complications; F03.92 Unspecified dementia, unspecified severity, with psychotic disturbance; Z88.2 Allergy status to sulfonamides
CPT/HCPCS: 82075; 36415 ×2; 93005; 80053; 84443; 85025; 85610; 85730; 81001; 87086; 87636; 70450; 99285; 96374; 96361; 96375; J0696; J0616

== ENCOUNTER 2025-02-20 15:40 | Inpatient (IN) | payer MEDICARE ==
--- NOTE | 2025-02-20 16:12 | ED ---
Psych HPI - General Chief Complaint: Psychiatric Symptoms Stated Complaint: AMS Time Seen by Provider: 02/20/25 15:53 Source: EMS, RN notes reviewed, old records reviewed Mode of arrival: EMS Limitations: altered mental status, physical limitation - History of Present Illness Initial Comments: This is a 75-year-old female presenting for acute psychosis, patient is having mood disorder type behavior, patient is from [facility] facility which was unable to run for to take care of this patient as she has a prolonged recent inpatient psychiatric hospitalization and showed no improvement in overall mental status and mood MD Complaint: altered mental status -: days(s) Associated Psychiatric Symptoms: homicidal ideation, racing thoughts, auditory hallucinations, visual hallucinations, delusions History of same: Yes Quality: constant Improves With: none Worsens With: none Treatments Prior to Arrival: placed on mental health hold - Related Data Home Medications Medication Instructions Recorded Confirmed Atorvastatin [Lipitor] 10 mg PO HS@199909/25/24 02/08/25 FLUoxetine HCL [PROzac] 20 mg PO DAILY@0800 09/25/24 02/08/25 lisinopriL [Zestril] 20 mg PO DAILY@0800 09/25/24 02/08/25 Albuterol Inhaler [Ventolin Hfa 1 puff INHALATION RT-QID PRN 12/26/24 02/08/25 Inhaler] Fluocinolone Acetonide [Synalar] 1 applic TOPICAL DAILY PRN 12/26/24 02/08/25 Sennosides/Docusate Sodium [Senna 1 - 2 tab PO HS PRN 12/26/24 02/08/25 Plus 8.6-50 mg Tablet] Haloperidol Decanoate [Haldol D] 50 mg IM QMONTHLY 02/08/25 02/08/25 Linagliptin [Tradjenta] 5 mg PO DAILY@0800 02/08/25 02/08/25 haloperidoL [Haldol] 2 mg PO BID@0800,1600 02/08/25 02/08/25 Allergies Allergy/AdvReac Type Severity Reaction Status Date / Time Sulfa (Sulfonamide AdvReac Unknown Verified 02/20/25 15:49 Antibiotics) Childhood Review of Systems ROS Statement: Those systems with pertinent positive or pertinent negative responses have been documented in the HPI. ROS Other: All systems not noted in ROS Statement are negative. Past Medical History Past Medical History: Dementia, Diabetes Mellitus, Hyperlipidemia, Hypertension, Osteoarthritis (OA), Thyroid Disorder Additional Past Medical History / Comment(s): Myalgia History of Any Multi-Drug Resistant Organisms: ESBL Date of last positivie culture/infection: 02/08/25 MDRO Source:: urine Past Surgical History: Tonsillectomy Additional Past Surgical History / Comment(s): cataracts, ovarian cysts Past Anesthesia/Blood Transfusion Reactions: No Reported Reaction Past Psychological History: No Psychological Hx Reported Smoking Status: Never smoker Past Alcohol Use History: None Reported Past Drug Use History: None Reported General Exam Limitations: altered mental status General appearance: alert, in no apparent distress Head exam: Present: atraumatic, normocephalic, normal inspection Eye exam: Present: normal appearance, PERRL, EOMI. Absent: scleral icterus, conjunctival injection, periorbital swelling ENT exam: Present: normal exam, mucous membranes moist Neck exam: Present: normal inspection. Absent: tenderness, meningismus, lymphadenopathy Respiratory exam: Present: normal lung sounds bilaterally. Absent: respiratory distress, wheezes, rales, rhonchi, stridor Cardiovascular Exam: Present: regular rate, normal rhythm, normal heart sounds. Absent: systolic murmur, diastolic murmur, rubs, gallop, clicks GI/Abdominal exam: Present: soft, normal bowel sounds. Absent: distended, tenderness, guarding, rebound, rigid Extremities exam: Present: normal inspection, full ROM, normal capillary refill. Absent: tenderness, pedal edema, joint swelling, calf tenderness Back exam: Present: normal inspection Neurological exam: Present: alert, oriented X3, CN II-XII intact Psychiatric exam: Present: normal affect, normal mood Skin exam: Present: warm, dry, intact, normal color. Absent: rash Course Vital Signs 02/20/25 15:45 Temperature 98.6 F Pulse Rate 91 Respiratory 18 Rate Blood Pressure 171/71 O2 Sat by Pulse 98 Oximetry - Reevaluation(s) Reevaluation #1: 02/20/25 18:15 Medical records reviewed Reevaluation #2: 02/20/25 18:15 Patient medically cleared for psychiatric gastric evaluation 02/20/25 21:17 Patient seen eval by psychiatry no need for psychiatric evaluation patient will be further evaluated regarding safe placement Reevaluation #3: Was pt. sent in by a medical professional or institution (LAMONTE Lewis, DRAMA PROFESSOR, urgent care, hospital, or fpc...) When possible be specific @ -no Did you speak to anyone other than the patient for history (EMS, parent, family, police, friend...)? What history was obtained from this source @ -no Did you review nursing and triage notes (agree or disagree)? Why? @ -agree Are old charts reviewed (outside hosp., previous admission, EMS record, old EKG, old radiological studies, urgent care reports/EKG's, fpc records)? Report findings @ -yes Differential Diagnosis (chest pain, altered mental status, abdominal pain women, abdominal pain men, vaginal bleeding, weakness, fever, dyspnea, syncope, headache, dizziness, GI bleed, back pain, seizure, CVA, palpatations, mental health, musculoskeletal)? @ -prior EKG interpreted by me (3pts min.). @ -yes X-rays interpreted by me (1pt min.). @ -yes negative for acute disease CT interpreted by me (1pt min.). @ -no U/S interpreted by me (1pt. min.). @ -no What testing was considered but not performed or refused? (CT, X-rays, U/S, labs)? Why? @ -none What meds were considered but not given or refused? Why? @ -none Did you discuss the management of the patient with other professionals (professionals i.e. LAMONTE Lewis, DRAMA PROFESSOR, lab, RT, psych nurse, older adult social work specialist, latin dancer, teacher, debt recovery officer, skilled nursing case manager)? Give summary @ -no Was smoking cessation discussed for >3mins.? @ -no Was critical care preformed (if so, how long)? @ -no Were there social determinants of health that impacted care today? How? (Homelessness, low income, unemployed, alcoholism, drug addiction, transport ation, low edu. Level, literacy, decrease access to med. care, assisted, rehab)? @ -none Was there de-escalation of care discussed even if they declined (Discuss DNR or withdrawal of care, Hospice)? DNR status @ -no What co-morbidities impacted this encounter? (DM, HTN, Smoking, COPD, CAD, Cancer, CVA, ARF, Chemo, Hep., AIDS, mental health diagnosis, sleep apnea, morbid obesity)? @ -none Was patient admitted / discharged? Hospital course, mention meds given and route, prescriptions, significant lab abnormalities, going to OR and other pertinent info. @ - Undiagnosed new problem with uncertain prognosis? @ -no Drug Therapy requiring intensive monitoring for toxicity (Heparin, Nitro, Insulin, Cardizem)? @ -no Were any procedures done? @ -no Diagnosis/symptom? @ - Acute, or Chronic, or Acute on Chronic? @ -Acute Uncomplicated (without systemic symptoms) or Complicated (systemic symptoms)? @ -Complicated Side effects of treatment? @ -no Exacerbation, Progression, or Severe Exacerbation? @ -exacerbation Poses a threat to life or bodily function? How? (Chest pain, USA, OR, pneumonia, PE, COPD, DKA, ARF, appy, cholecystitis, CVA, Diverticulitis, Homicidal, Suicidal, threat to staff... and all critical care pts) @ -yes Reevaluation #4: Differential Mental Health Depression, anxiety, bipolar, psychosis, schizophrenia, borderline personality, situational depression, adjustment disorder, behavioral disorder, brain tumor, malingering, substance abuse, encephalopathy, medication reaction, dementia, hypothyroidism, degenerative neurologic disorder, lupus.... This is not meant to be all-inclusive list Differential Altered Mental Status: Hypoglycemia, DKA, hypercapnia, ETOH, overdose, CO poisoning, trauma, myxedema coma, HTN encephalopathy, infection, encephalitis, psychosis, intercranial hemorrhage, hepatic encephalopathy, meningitis, CVA, this is not meant to be an all-inclusive list - Consultations Consultation #1: Spoke with [facility] who agrees to admit this patient Medical Decision Making - Medical Decision Making 75 female will be admitted for p altered mental status mood disorder unsafe to live at extended-care facility patient recently as of inpatient psychiatric admission and will admit for further dimension and supportive care - Radiology Data Radiology results: report reviewed (CT brain), image reviewed Disposition Clinical Impression: Dementia, Mood disorder, Altered mental status, Psychosis Disposition: ADMITTED IP TO THIS [facility] Condition: Fair Is patient prescribed a controlled substance at d/c from ED?: No Referrals: Nonstaff,Physician [Primary Care Provider] - 1-2 days Time of Disposition: 21:00
[2025-02-20] MEDS ORDERED: NALOXONE 0.4 MG/ML 1 ML VIAL IV PRN (21:12)
[2025-02-20] MEDS ORDERED: ONDANSETRON 4 MG/2 ML VIAL IVP PRN (21:12)
[2025-02-20] MEDS ORDERED: MORPHINE SULFATE 4 MG/ML SYRINGE IV PRN (21:12)
[2025-02-20] MEDS ORDERED: LORazepam 1 MG/0.5 ML VIAL IV PRN (21:15)
--- NOTE | 2025-02-20 21:51 | CT ---
EXAMINATION TYPE: CT brain wo con DATE OF EXAM: 02/20/2025 9:46 PM COMPARISON: Prior CT brain 02/08/2025. CLINICAL INDICATION: Female, 75 years old with history of Altered mental status, recent D/C from [facility] for psych, lives at senior facility, sent for aggresion, recent med change TECHNIQUE: Brain: Axial CT images of the brain were obtained with coronal and sagittal reformats created and rev iewed. Contrast used: None. Oral contrast used: None. CT DLP: 1156.4 mGycm, Automated exposure control for dose reduction was used. FINDINGS: Brain: Extra-axial spaces: No abnormal extra-axial fluid collections. Ventricular system: Dilatation in proportion to cerebral atrophy. Cerebral parenchyma: No acute intraparenchymal hemorrhage or mass effect. The lópez-white junction is well differentiated. Scattered hypoattenuating areas are seen within the white matter. Cerebellum: Unremarkable. Mass effect: No evidence of midline shift. Intracranial vasculature: unremarkable Soft tissues: Normal. Calvarium/osseous structures: No depressed skull fracture. Paranasal sinuses and mastoid air cells: Mild scattered paranasal sinus disease. Visualized orbits: Orbital contents are intact. IMPRESSION: No acute intracranial process. [facility], , 02/20/2025 9:49 PM
[2025-02-20 22:38] LABS: Basophils # (A) 0.05 10*3/uL (0.00-0.10); Basophils % (A) 0.4 %; Eosinophils # (A) 0.18 10*3/uL (0.04-0.35); Eosinophils % (A) 1.4 %; HCT 38.4 % (37.2-46.3); HGB 13.0 g/dL (12.0-15.0); Lymphocytes # (A) 2.39 10*3/uL (0.90-5.00); Lymphocytes % (A) 19.1 %; MCH 29.0 pg (27.0-32.0); MCHC 33.9 g/dL (32.0-37.0); MCV 85.7 fL (80.0-97.0); Monocytes # (A) 0.85 10*3/uL (0.20-1.00); Monocytes % (A) 6.8 %; Neutrophils # (A) 9.02 10*3/uL (1.80-7.70); Neutrophils % (A) 72.1 %; Platelet Count 213 10*3/uL (140-440); RBC 4.48 10*6/uL (4.10-5.20); RDW 12.5 % (11.5-14.5); WBC 12.51 10*3/uL (4.50-10.00)
[2025-02-20 22:51] LABS: INR 1.1 (<1.2); Partial Thromboplastin Time 24.8 sec (22.0-30.0); Prothrombin Time 11.6 sec (10.0-12.5)
[2025-02-20 22:53] LABS: ALT 16 U/L (4-34); AST 27 U/L (14-36); African American GFR (CKD) >90 (>60 ml/min/1.73 sqM); Albumin 3.8 g/dL (3.5-5.0); Alkaline Phosphatase 91 U/L (38-126); Anion Gap 10 mmol/L; Blood Urea Nitrogen 11 mg/dL (7-17); Calcium 9.3 mg/dL (8.4-10.2); Carbon Dioxide 26 mmol/L (22-30); Chloride 91 mmol/L (98-107); Glucose 115 mg/dL (74-99); Non-African American GFR(CKD) >90 (>60 ml/min/1.73 sqM); Potassium 3.9 mmol/L (3.5-5.1); Sodium 127 mmol/L (137-145); Total Protein 6.8 g/dL (6.3-8.2)
[2025-02-20] MEDS: SODIUM CHLORIDE 0.9% 1,000 ML IV ONE (23:35)
[2025-02-20] MEDS: LORazepam 1 MG/0.5 ML VIAL IV STA (23:37)
[2025-02-20] MEDS: PANTOPRAZOLE 40 MG/10 ML VIAL IV SCH (23:40)
[2025-02-20] MEDS: DEXTROSE 5%-0.45% NACL 1,000 ML IV SCH (23:43)
[2025-02-21 07:02] LABS: Bacteria,Urine Moderate /hpf; Bilirubin,Urine Negative (Negative); Blood,Urine Negative (Negative); Color,Urine Colorless; Glucose,Urine (UA) 4+ (Negative); Ketones,Urine Negative (Negative); Leukocyte Esterase,Urine Large (Negative); Nitrite,Urine Positive (Negative); PH, Urine 5.5 (5.0-8.0); Protein,Urine Negative (Negative); Specific Gravity,Urine 1.006 (1.001-1.035); Squamous Epithelial Cell,Urine <1 /hpf (0-4); Urobilinogen,Urine <2.0 mg/dL (<2.0); WBC,Urine 53 /hpf (0-5)
[2025-02-21 07:29] LABS: Benzodiazepines Screen,Urine Detected (NotDetected); Opiate Screen,Urine Not Detected (NotDetected); Phencyclidine Screen,Urine Not Detected (NotDetected); Urn Cannabinoid Scrn Not Detected (NotDetected)
[2025-02-21 07:30] LABS: Barbiturate Screen,Urine Not Detected (NotDetected); Oxycodone Screen, Urine Not Detected (NotDetected); Tricyclic Antidepressant,Urine Not Detected (NotDetected)
[2025-02-21 08:08] LABS: Basophils # (A) 0.05 10*3/uL (0.00-0.10); Basophils % (A) 0.5 %; Eosinophils # (A) 0.21 10*3/uL (0.04-0.35); Eosinophils % (A) 2.0 %; HCT 38.2 % (37.2-46.3); HGB 12.7 g/dL (12.0-15.0); Lymphocytes # (A) 1.95 10*3/uL (0.90-5.00); Lymphocytes % (A) 18.3 %; MCH 28.5 pg (27.0-32.0); MCHC 33.2 g/dL (32.0-37.0); MCV 85.7 fL (80.0-97.0); Monocytes # (A) 0.69 10*3/uL (0.20-1.00); Monocytes % (A) 6.5 %; Neutrophils # (A) 7.73 10*3/uL (1.80-7.70); Neutrophils % (A) 72.4 %; Platelet Count 205 10*3/uL (140-440); RBC 4.46 10*6/uL (4.10-5.20); RDW 12.7 % (11.5-14.5); WBC 10.66 10*3/uL (4.50-10.00)
[2025-02-21 08:26] LABS: ALT 15 U/L (4-34); AST 23 U/L (14-36); African American GFR (CKD) >90 (>60 ml/min/1.73 sqM); Albumin 3.8 g/dL (3.5-5.0); Alkaline Phosphatase 95 U/L (38-126); Anion Gap 9 mmol/L; Blood Urea Nitrogen 9 mg/dL (7-17); Calcium 9.0 mg/dL (8.4-10.2); Carbon Dioxide 23 mmol/L (22-30); Chloride 98 mmol/L (98-107); Glucose 116 mg/dL (74-99); Magnesium 1.7 mg/dL (1.6-2.3); Non-African American GFR(CKD) >90 (>60 ml/min/1.73 sqM); Potassium 3.9 mmol/L (3.5-5.1); Sodium 130 mmol/L (137-145); Total Protein 6.7 g/dL (6.3-8.2)
--- NOTE | 2025-02-21 14:24 | P.CN ---
Psychiatric Consult - . Consult date: 02/21/25 Consult:: 02/21/25 13:54 IDENTIFYING DATA: This patient is a 75-year-old female, coming from the extended care facility, claims that she is she has 4 kids REASON FOR REFERRAL: Psychiatry was consulted for altered mental status HISTORY OF PRESENT ILLNESS: The patient presented to the hospital from her extended care facility. Patient allegedly just was discharged from [facility] inpatient psychiatric unit and apparently was there for a prolonged period of time. Apparently patient was being disruptive disorganized and agitated at the fci and brought to the hospital. Patient had a CT scan of the brain did not show any changes, white blood cell count decreasing sodium was at 127 improving to 130. Urinalysis is positive for UTI. Urine drug screen is positive for benzodiazepines, but alcohol level was negative. Patient had a one-to-one sitter at her side today. Nurse has no significant complaints from patient's behaviors. Patient was agreeable to speak to commercial real estate underwriter today she was fairly calm and pleasant. She had a fairly poor understanding of why she is in the hospital, was a rather poor historian. She believes that today is January 2026. She also believes that she is "[age]" years old. She believes that she is in a hospital however thinks that she is in [place]. She claims that she was having trouble in her fci states that her "I did not want to be there and they did not want me" however was not able to describe what had occurred and was a fairly poor historian. She states that he fci is owned by "Stephanie Almazan. She appears to have a resting tremor some disorganized thoughts.". She was not able to correctly remember 3 out of 3 words after 5 minutes. Claims that her mood and anxiety are fair at this time. Claims that her sleep and appetite are fair.. At this time patient denies any suicidal or homical ideations, intent or plan. Patient denies any auditory, visual hallucinations. Endorsing several loosely formed delusions. Patients admits to using no recreational drugs or cigarettes PAST PSYCHIATRIC HISTORY: Patient has a a history of some form of mental illness, unsure if this is psychosis versus neurocognitive disorder. Patient is currently on Prozac and haloperidol. Claims that she has been on several different medications in the past for psychiatric purposes. She was last psychiatrically hospitalized at [facility] and was discharged a couple of days ago. Patient denies any psychiatric outpatient follow-up. Patient denies any history of suicide attempts in the past. Past Medical History: Dementia, Diabetes Mellitus, Hyperlipidemia, Hypertension, Osteoarthritis (OA), Thyroid Disorder Additional Past Medical History / Comment(s): Myalgia History of Any Multi-Drug Resistant Organisms: ESBL Date of last positivie culture/infection: 02/08/25 MDRO Source:: urine Past Surgical History: Tonsillectomy Additional Past Surgical History / Comment(s): cataracts, ovarian cysts Past Anesthesia/Blood Transfusion Reactions: No Reported Reaction Past Psychological History: No Psychological Hx Reported Smoking Status: Never smoker Past Alcohol Use History: None Reported Past Drug Use History: None Reported ALLERGIES: as per EMR. CHEMICAL DEPENDENCY HISTORY: as per HPI. FAMILY PSYCHIATRIC/SUBSTANCE USE HISTORY: Denies SOCIAL HISTORY: Patient was born and raised in the [place] area. Claims that she completed high school and worked as a psychiatric nurse in [place]. Denies any legal history. Claims that she has 4 kids, she currently was residing at a extended care facility, claims that she is . MENTAL STATUS EXAM: General Appearance: Patient appears to be laying in bed, stated age is alert, pleasant, and attempts to be cooperative. Patient appears to have fair hygiene and grooming wearing hospital gown with fair eye contact. She has a resting tremor in her hands. Behavior: Patient is calmly lying in bed without any agitated behavior. Attempts to cooperate Speech: Patient's speech is fluent and nonpressured. Hesitant at times Mood/Affect: Patient reports their mood is "ok", affect is congruent and constricted Suicidality/Homicidality: Patient denies having any suicidal or homicidal ideation intent or plan. Perceptions: Patient denies any visual hallucinations and denies any auditory hallucinations Though content/process: Several loosely form delusions, poor insight into her condition, mild paranoia. Disorganized thoughts, rambling Memory and concentration: AOX to name only, follow some directions. Cannot spell "WORLD" backwards Judgment and insight: Chronically poor/limited IMPRESSIONS: Psychosis unspecified, rule out schizophrenia versus schizoaffective disorder versus advanced Parkinson's disease versus neurocognitive disorder PLAN: -At this time patient DOES NOT meet criteria for inpatient psychiatric admission. -Delirium precautions recommended with patient including - avoiding use of narcotics and BROOM MAN sedatives, limit anticholinergic medications when possible, frequent re-orientation, minimize use of restraints, open window shades during the day and close them at night -Would recommend the following medication changes/additions: Please avoid Ativan and morphine as these will most likely precipitate patient's confusion/delirium. Would recommend starting treatment for positive urinary allowances for infection given patient's change in mental status. We will give 1 dose of Seroquel now, 25 mg scheduled nightly for psychosis/mood stabilization/insomnia, will also add 25 mg daily as needed for agitation/psychosis. -Continue 1:1 sitter for safety -supervisor shed workers to provide patient with outpatient mental health/psychiatry resources for appropriate follow up upon discharge -Communicated plan to patient's nurse. supervisor shed workers/director of casework can attempt to look for placement options. -Will continue to follow along as needed -Please contact with any questions. 02/21/25 14:14
[2025-02-21] MEDS ORDERED: ALBUTEROL NEBULIZED 2.5 MG/3 ML INHALATION PRN (14:37)
--- NOTE | 2025-02-21 14:45 | P.HPIM ---
History of Present Illness H&P Date: 02/21/25 History of present illness; patient is a 75-year-old lady with past medical history significant for hypertension, hyperlipidemia, psychosis who was sent to the ER from extended-care facility for altered mental status. Patient was recently in an inpatient psych facility was recently discharged to extended-care facility. According to extended-care facility staff patient was having disruptive behavior there, patient continued to act confused. Patient had labile mood there. There was no complaint of auditory or visual hallucinations. There was no current suicidal thoughts. There was no complaint of chest pain. There was no complaint of orthopnea or PND. There is no complaint of shortness of breath. Patient denies any palpitation. Denies any nausea, vomiting abdominal pain. Patient denies any complaint of dizziness. There is no complaint of headache. Patient is complaining of suprapubic tenderness. Initial lab work done in the ER showed WBC 12.59, hemoglobin 13, platelet count 213, sodium 127, potassium 3.9, BUN 11, creatinine 0.44, glucose 115, calcium 9.3 UA done positive for nitrite, urine leukocytes large amount, urine WBC 53 Urine drug screen positive for benzos Serum alcohol level 10 Influenza A not detected Influenza B not detected RSV not detected COVID-[address] head done showed no acute intracranial process Patient admitted to internal medicine service REVIEW OF SYSTEMS: Review of system cannot be obtained as patient is very confused, keeps stating that she lives at home with FBI. Keeps stating that she has 4 children ages of 14 13, 11, 9 PHYSICAL EXAMINATION: GENERAL: The patient is alert to self and person HEENT: Pupils are round and equally reacting to light. EOMI. No scleral icterus. No conjunctival pallor. Normocephalic, atraumatic. No pharyngeal erythema. No thyromegaly. CARDIOVASCULAR: S1 and S2 present. No murmurs, rubs, or gallops. PULMONARY: Chest is clear to auscultation, no wheezing or crackles. ABDOMEN: Soft, nontender, nondistended, normoactive bowel sounds. No palpable organomegaly. MUSCULOSKELETAL: No joint swelling or deformity. EXTREMITIES: No cyanosis, clubbing, or pedal edema. NEUROLOGICAL: Gross neurological examination did not reveal any focal deficits. SKIN: No rashes. Assessment and plan Hyponatremia UTI Metabolic encephalopathy Hypertension hyperlipidemia diabetes mellitus Monitor vital signs Monitor CBC Monitor CMP Delirium precaution Elopement precaution Order urine culture Ordered IV fluids Ordered IV Rocephin Resume home meds Consult psychiatry Labs and medication were reviewed.. Continue same treatment. Continue with symptomatic treatment. Resume home medication. Monitor labs and vitals. DVT and GI prophylaxis. Further recommendations as per clinical course of the patient Dictation was produced using Seat[employer] dictation software. please excuse any grammatical, word or spelling errors. Past Medical History Past Medical History: Dementia, Diabetes Mellitus, Hyperlipidemia, Hypertension, Osteoarthritis (OA), Thyroid Disorder Additional Past Medical History / Comment(s): Myalgia History of Any Multi-Drug Resistant Organisms: ESBL Date of last positivie culture/infection: 02/08/25 MDRO Source:: urine Past Surgical History: Tonsillectomy Additional Past Surgical History / Comment(s): cataracts, ovarian cysts Past Anesthesia/Blood Transfusion Reactions: No Reported Reaction Past Psychological History: No Psychological Hx Reported Smoking Status: Never smoker Past Alcohol Use History: None Reported Past Drug Use History: None Reported - Past Family History Father History Unknown: Yes Medications and Allergies Home Medications Medication Instructions Recorded Confirmed Type Atorvastatin [Lipitor] 10 mg PO HS@199909/25/24 02/21/25 History FLUoxetine HCL [PROzac] 20 mg PO DAILY@79909/25/24 02/21/25 History Albuterol Inhaler [Ventolin Hfa 1 puff INHALATION RT-QID PRN 12/26/24 02/21/25 History Inhaler] Fluocinolone Acetonide [Synalar] 1 applic TOPICAL DAILY PRN 12/26/24 02/21/25 History Sennosides/Docusate Sodium [Senna 1 - 2 tab PO HS PRN 12/26/24 02/21/25 History Plus 8.6-50 mg Tablet] Haloperidol Decanoate [Haldol D] 50 mg IM Q28D 02/08/25 02/21/25 History Linagliptin [Tradjenta] 5 mg PO DAILY@0802/08/25 02/21/25 History Dapagliflozin Propanediol [Farxiga] 10 mg PO DIRECTED 02/21/25 02/21/25 History Sodium Chloride Tab 2 gm PO DIRECTED 02/21/25 02/21/25 History amLODIPine [Norvasc] 5 mg PO DIRECTED 02/21/25 02/21/25 History haloperidoL [Haldol] 3 mg PO DIRECTED 02/21/25 02/21/25 History Allergies Allergy/AdvReac Type Severity Reaction Status Date / Time Sulfa (Sulfonamide Allergy Unknown Verified 02/21/25 07:32 Antibiotics) Childhood Physical Exam Vitals: Vital Signs Temp Pulse Pulse Resp BP BP Pulse Ox 02/21/25 13:40 98.2 F 83 16 146/75 96 02/21/25 07:58 98.1 F 80 16 150/71 97 02/21/25 06:59 76 16 132/70 97 02/21/25 04:27 79 16 147/64 96 02/21/25 02:58 71 14 98 02/21/25 01:54 72 97 02/20/25 23:31 98.3 F 79 16 153/69 96 02/20/25 15:45 98.6 F 91 18 171/71 98 Intake and Output 02/20/25 02/21/25 02/21/25 22:59 06:59 14:59 Other: Voiding Method External Catheter Weight 81.193 kg 81.193 kg Results CBC & Chem 7: 02/21/25 07:46 02/21/25 07:46 Labs: Abnormal Lab Results - Last 24 Hours (Table) 02/20/25 02/20/25 02/21/25 Range/Units 22:29 22:29 05:55 WBC 12.51 H (4.50-10.00) 10*3/uL Neutrophils # 9.02 H (1.80-7.70) 10*3/uL Sodium 127 L (137-145) mmol/L Chloride 91 L (98-107) mmol/L Creatinine 0.44 L (0.52-1.04) mg/dL Glucose 115 H (74-99) mg/dL Urine Glucose (UA) 4+ H (Negative) Urine Nitrite Positive H (Negative) Ur Leukocyte Esterase Large H (Negative) Urine WBC 53 H (0-5) /hpf Urine Bacteria Moderate H (None) /hpf U Benzodiazepines Scrn Detected H (NotDetected) 02/21/25 02/21/25 Range/Units 07:46 07:46 WBC 10.66 H (4.50-10.00) 10*3/uL Neutrophils # 7.73 H (1.80-7.70) 10*3/uL Sodium 130 L (137-145) mmol/L Chloride (98-107) mmol/L Creatinine 0.49 L (0.52-1.04) mg/dL Glucose 116 H (74-99) mg/dL Urine Glucose (UA) (Negative) Urine Nitrite (Negative) Ur Leukocyte Esterase (Negative) Urine WBC (0-5) /hpf Urine Bacteria (None) /hpf U Benzodiazepines Scrn (NotDetected) Thrombosis Risk Factor Assmnt - Choose All That Apply Any of the Below Risk Factors Present?: No Other Risk Factors: Yes Each Risk Factor Represents 3 Points: Age 75 years or older Other congenital or acquired thrombophilia - If yes, enter type in comment: No Thrombosis Risk Factor Assessment Total Risk Factor Score: 3 Thrombosis Risk Factor Assessment Level: Moderate Risk
[2025-02-21] MEDS: QUEtiapine 25 MG TAB PO STA (15:26)
[2025-02-21] MEDS: QUEtiapine 25 MG TAB PO SCH (21:15)
[2025-02-21] MEDS: ATORVASTATIN 10 MG TAB PO SCH (21:16)
--- NOTE | 2025-02-21 21:50 | P.CONS ---
History of Present Illness - Reason for Consult Consult date: 02/21/25 Complicated UTI Requesting physician: Chinmay Tierney - Chief Complaint Mental status changes x 1 day - History of Present Illness Patient is a 75-year-old female with a past medical history significant for Dementia, Diabetes Mellitus, Hyperlipidemia, Hypertension, Os teoarthritis (OA), Thyroid Disorder, patient has been brought into the hospital for evaluation of mental status changes and the patient noticed to have altered mental status patient denies having any headache or URI symptoms no chest pain shortness of breath occasional cough no nausea vomiting some vague abdominal pain no diarrhea or constipation no recently reported urinary symptoms patient on presentation to the hospital was afebrile and no free HyperCard subsequently patient was not tachycardic or hypotensive patient did have elevated white 12.51 with a left shift creatinine 0.44 electrolytes are normal urine was positive with large leukocyte Estrace 53 WBC urine testing has been positive for benzo patient has been started on ceftriaxone unfortunately urine culture were not done infectious disease was consulted for further management of antibiotic therapy most information has been obtained from review of the chart documents sick staff CT of the brain was negative for any bleed Review of Systems Positive points has been mentioned in HPI complete review could not be obtained because of his underlying mental status Past Medical History Past Medical History: Dementia, Diabetes Mellitus, Hyperlipidemia, Hypertension, Osteoarthritis (OA), Thyroid Disorder Additional Past Medical History / Comment(s): Myalgia History of Any Multi-Drug Resistant Organisms: ESBL Year Discovered:: 02/08/25 MDRO Source:: urine Past Surgical History: Tonsillectomy Additional Past Surgical History / Comment(s): cataracts, ovarian cysts Past Anesthesia/Blood Transfusion Reactions: No Reported Reaction Past Psychological History: No Psychological Hx Reported Smoking Status: Never smoker Past Alcohol Use History: None Reported Past Drug Use History: None Reported - Past Family History Father History Unknown: Yes Medications and Allergies Home Medications Medication Instructions Recorded Confirmed Type Atorvastatin [Lipitor] 10 mg PO HS@199909/25/24 02/21/25 History FLUoxetine HCL [PROzac] 20 mg PO DAILY@0809/25/24 02/21/25 History Albuterol Inhaler [Ventolin Hfa 1 puff INHALATION RT-QID PRN 12/26/24 02/21/25 History Inhaler] Fluocinolone Acetonide [Synalar] 1 applic TOPICAL DAILY PRN 12/26/24 02/21/25 History Sennosides/Docusate Sodium [Senna 1 - 2 tab PO HS PRN 12/26/24 02/21/25 History Plus 8.6-50 mg Tablet] Haloperidol Decanoate [Haldol D] 50 mg IM Q28D 02/08/25 02/21/25 History Linagliptin [Tradjenta] 5 mg PO DAILY@0800 02/08/25 02/21/25 History Dapagliflozin Propanediol [Farxiga] 10 mg PO DIRECTED 02/21/25 02/21/25 History Sodium Chloride Tab 2 gm PO DIRECTED 02/21/25 02/21/25 History amLODIPine [Norvasc] 5 mg PO DIRECTED 02/21/25 02/21/25 History haloperidoL [Haldol] 3 mg PO DIRECTED 02/21/25 02/21/25 History Allergies Allergy/AdvReac Type Severity Reaction Status Date / Time Sulfa (Sulfonamide Allergy Unknown Verified 02/21/25 07:32 Antibiotics) Childhood Physical Exam Vitals: Vital Signs Temp Pulse Pulse Resp BP BP Pulse Ox 02/21/25 13:40 98.2 F 83 16 146/75 96 02/21/25 07:58 98.1 F 80 16 150/71 97 02/21/25 06:59 76 16 132/70 97 02/21/25 04:27 79 16 147/64 96 02/21/25 02:58 71 14 98 02/21/25 01:54 72 97 02/20/25 23:31 98.3 F 79 16 153/69 96 02/20/25 15:45 98.6 F 91 18 171/71 98 Intake and Output 02/21/25 02/21/25 02/21/25 06:59 14:59 22:59 Other: Voiding Method External Catheter Weight 81.193 kg GENERAL DESCRIPTION: Elderly female lying in bed, no distress. No tachypnea or accessory muscle of respiration use. HEENT: Shows Pallor , no scleral icterus. Oral mucous membrane is dry. NECK: Trachea central, no thyromegaly. LUNGS: Unlabored breathing. Clear to auscultation anteriorly. No wheeze or crackle. HEART: S1, S2, regular rate and rhythm. No loud murmur ABDOMEN: Soft, no tenderness , guarding or rigidity, EXTREMITIES: No edema of feet. SKIN: No rash, no masses palpable. NEUROLOGICAL: The patient is awake, mood and affect normal. Results CBC & Chem 7: 02/21/25 07:46 02/21/25 07:46 Labs: Abnormal Lab Results - Last 24 Hours (Table) 02/20/25 02/20/25 02/21/25 Range/Units 22:29 22:29 05:55 WBC 12.51 H (4.50-10.00) 10*3/uL Neutrophils # 9.02 H (1.80-7.70) 10*3/uL Sodium 127 L (137-145) mmol/L Chloride 91 L (98-107) mmol/L Creatinine 0.44 L (0.52-1.04) mg/dL Glucose 115 H (74-99) mg/dL Urine Glucose (UA) 4+ H (Negative) Urine Nitrite Positive H (Negative) Ur Leukocyte Esterase Large H (Negative) Urine WBC 53 H (0-5) /hpf Urine Bacteria Moderate H (None) /hpf U Benzodiazepines Scrn Detected H (NotDetected) 02/21/25 02/21/25 Range/Units 07:46 07:46 WBC 10.66 H (4.50-10.00) 10*3/uL Neutrophils # 7.73 H (1.80-7.70) 10*3/uL Sodium 130 L (137-145) mmol/L Chloride (98-107) mmol/L Creatinine 0.49 L (0.52-1.04) mg/dL Glucose 116 H (74-99) mg/dL Urine Glucose (UA) (Negative) Urine Nitrite (Negative) Ur Leukocyte Esterase (Negative) Urine WBC (0-5) /hpf Urine Bacteria (None) /hpf U Benzodiazepines Scrn (NotDetected) Assessment and Plan (1) Allergy to sulfa drugs Current Visit: Yes Status: Acute Code(s): Z88.2 - ALLERGY STATUS TO SULFONAMIDES SNOMED Code(s): 66596831 (2) Leukocytosis Current Visit: Yes Status: Acute Code(s): D72.829 - ELEVATED WHITE BLOOD CELL COUNT, UNSPECIFIED SNOMED Code(s): 093446731 (3) Altered mental status Current Visit: Yes Status: Acute Code(s): R41.82 - ALTERED MENTAL STATUS, UNSPECIFIED SNOMED Code(s): 039591787 (4) UTI (urinary tract infection) Current Visit: No Status: Acute Code(s): N39.0 - URINARY TRACT INFECTION, SITE NOT SPECIFIED SNOMED Code(s): 49232137 Plan: 1patient presented hospital with mental status change which is likely multifactorial patient did have elevated white count positive UA ongoing abdominal pain likely concerning for symptomatic UTI from enteric gram-negative pathogen 2-patient did have sulfa allergy 3-patient will be treated with Rocephin 2 g daily while waiting for the culture to finalize We will follow on clinical condition and cultures to further adjust medication if needed Thank you for this consultation we will follow the patient along with you Dictation was produced using [employer] dictation software. please excuse any grammatical, word or spelling errors. Time with Patient: Greater than 30
[2025-02-22] MEDS: DAPAGLIFLOZIN PROPANEDIOL 10 MG TABLET PO SCH (09:11)
[2025-02-22] MEDS: LINAGLIPTIN 5 MG TABLET PO SCH (09:11)
[2025-02-22] MEDS: amLODIPine 5 MG TAB PO SCH (09:12)
--- NOTE | 2025-02-22 14:29 | P.PN ---
Subjective Progress Note Date: 02/22/25 patient is a 75-year-old lady with past medical history significant for hypertension, hyperlipidemia, psychosis who was sent to the ER from [facility]- care facility for altered mental status. Patient was recently in an inpatient psych facility was recently discharged to [facility]-care facility. According to [facility]-care facility staff patient was having disruptive behavior there, patient continued to act confused. Patient had labile mood there. There was no complaint of auditory or visual hallucinations. There was no current suicidal thoughts. There was no complaint of chest pain. There was no complaint of orthopnea or PND. There is no complaint of shortness of breath. Patient denies any palpitation. Denies any nausea, vomiting abdominal pain. Patient denies any complaint of dizziness. There is no complaint of headache. Patient is complaining of suprapubic tenderness. Initial lab work done in the ER showed WBC 12.59, hemoglobin 13, platelet count 213, sodium 127, potassium 3.9, BUN 11, creatinine 0.44, glucose 115, calcium 9.3 UA done positive for nitrite, urine leukocytes large amount, urine WBC 53 Urine drug screen positive for benzos Serum alcohol level 10 Influenza A not detected Influenza B not detected RSV not detected COVID-[address] head done showed no acute intracranial process Patient admitted to internal medicine service 02/22. Patient seen and examined. Patient is alert to self and place, keeps stating that she lives in a house with FBI agents around, denies any auditory or visual hallucinations. Keeps stating that she is [age] years old REVIEW OF SYSTEMS: CONSTITUTIONAL: No fever, no malaise,. CARDIOVASCULAR: No chest pain, no palpitations, no syncope. PULMONARY: No shortness of breath, no cough, GASTROINTESTINAL: No diarrhea, no nausea, no vomiting, no abdominal pain. NEUROLOGICAL: No headaches, no weakness, PHYSICAL EXAMINATION: GENERAL: The patient is alert and oriented x to self and place, HEENT: Pupils are round and equally reacting to light. EOMI. No scleral icterus. No conjunctival pallor. Normocephalic, atraumatic. No pharyngeal erythema. No thyromegaly. CARDIOVASCULAR: S1 and S2 present. No murmurs, rubs, or gallops. PULMONARY: Chest is clear to auscultation, no wheezing or crackles. ABDOMEN: Soft, nontender, nondistended, normoactive bowel sounds. No palpable organomegaly. MUSCULOSKELETAL: No joint swelling or deformity. EXTREMITIES: No cyanosis, clubbing, or pedal edema. NEUROLOGICAL: Gross neurological examination did not reveal any focal deficits. SKIN: No rashes. Assessment and plan Hyponatremia UTI Metabolic encephalopathy Hypertension hyperlipidemia diabetes mellitus Monitor vital signs Monitor CBC Monitor CMP Delirium precaution Elopement precaution Follow-up blood culture Continue IV Rocephin Psychiatry evaluated, recommending patient does not meet criteria for inpatient psych admission ID following Labs and medication were reviewed.. Continue same treatment. Continue with sym ptomatic treatment. Resume home medication. Monitor labs and vitals. DVT and GI prophylaxis. Further recommendations as per clinical course of the patient Dictation was produced using [employer] dictation software. please excuse any grammatical, word or spelling errors. Objective - Vital Signs Vital signs: Vital Signs Temp 98.2 F 02/22/25 12:50 Pulse 78 02/22/25 12:50 Resp 20 02/22/25 12:50 BP 148/76 02/22/25 12:50 Pulse Ox 96 02/22/25 12:50 FiO2 Intake & Output 02/21/25 02/22/25 02/22/25 18:59 06:59 18:59 Intake Total 118 Output Total 1400 600 Balance -1400 -482 Intake: Oral 118 Output: Urine 1400 600 Other: Voiding Method External Catheter Diaper Diaper External Catheter External Catheter # Voids 4 1 - Labs CBC & Chem 7: 02/21/25 07:46 02/21/25 07:46
[2025-02-22] MEDS: QUEtiapine 25 MG TAB PO PRN (15:16)
--- NOTE | 2025-02-23 07:51 | P.PN ---
Subjective Progress Note Date: 02/23/25 75-year-old lady with past medical history significant for hypertension, hyperlipidemia, psychosis who was sent to the ER from extended-care facility for altered mental status. Patient was recently in an inpatient psych facility was recently discharged to extended-care facility. According to extended-care facility staff patient was having disruptive behavior there, patient continued to act confused. Patient had labile mood there. There was no complaint of auditory or visual hallucinations. There was no current suicidal thoughts. There was no complaint of chest pain. There was no complaint of orthopnea or PND. There is no complaint of shortness of breath. Patient denies any palpitation. Denies any nausea, vomiting abdominal pain. Patient denies any complaint of dizziness. There is no complaint of headache. Patient is complaining of suprapubic tenderness. Initial lab work done in the ER showed WBC 12.59, hemoglobin 13, platelet count 213, sodium 127, potassium 3.9, BUN 11, creatinine 0.44, glucose 115, calcium 9.3 UA done positive for nitrite, urine leukocytes large amount, urine WBC 53 Urine drug screen positive for benzos Serum alcohol level 10 Influenza A not detected Influenza B not detected RSV not detected COVID-[address] head done showed no acute intracranial process Patient admitted to internal medicine service --Patient seen and examined. Patient is alert to self and place, keeps stating that she lives in a house with FBI agents around, denies any auditory or visual hallucinations. Keeps stating that she is [age] years old Objective - Vital Signs Vital signs: Vital Signs Temp 98 F 02/23/25 02:00 Pulse 79 02/23/25 02:00 Resp 16 02/23/25 02:00 BP 140/72 02/23/25 02:00 Pulse Ox 96 02/23/25 02:00 FiO2 Intake & Output 02/22/25 02/23/25 02/23/25 18:59 06:59 18:59 Intake Total 1048 Output Total 1650 1800 Balance -602 -1800 Intake: Intake, IV Titration 930 Amount Dextrose 5%-0.45% NaCl 1, 880 000 ml @ 80 mls/hr IV . [id number] MARTHA Rx#:[id number] cefTRIAXone 2 gm In 50 Sodium Chloride 0.9% 50 ml @ 100 mls/hr IVPB Q24H MARTHA Rx#:[id number] Oral 118 Output: Urine 1650 1800 Other: Voiding Method Diaper Diaper External Catheter External Catheter # Voids 1 - Exam GENERAL: The patient is alert and oriented x to self and place, HEENT: Pupils are round and equally reacting to light. EOMI. No scleral icterus. No conjunctival pallor. Normocephalic, atraumatic. No pharyngeal erythema. No thyromegaly. CARDIOVASCULAR: S1 and S2 present. No murmurs, rubs, or gallops. PULMONARY: Chest is clear to auscultation, no wheezing or crackles. ABDOMEN: Soft, nontender, nondistended, normoactive bowel sounds. No palpable organomegaly. MUSCULOSKELETAL: No joint swelling or deformity. EXTREMITIES: No cyanosis, clubbing, or pedal edema. NEUROLOGICAL: Gross neurological examination did not reveal any focal deficits. SKIN: No rashes. - Labs CBC & Chem 7: 02/21/25 07:46 02/21/25 07:46 Assessment and Plan Assessment: Hyponatremia UTI Metabolic encephalopathy Hypertension hyperlipidemia diabetes mellitus Monitor vital signs Monitor CBC Monitor CMP Delirium precaution Elopement precaution Follow-up blood culture Continue IV Rocephin Psychiatry evaluated, recommending patient does not meet criteria for inpatient psych admission ID following
[2025-02-23 07:55] VITALS: PULSE 75; TEMP 98
--- NOTE | 2025-02-23 10:02 | P.DS ---
Providers Date of admission: 02/22/25 08:17 Attending physician: Nitin Palencia Consults: 02/20/25 21:12 Consult Physician Routine Consulting Provider: Psychiatry - [facility] Psychiatry Consult Reason/Comments: ams Do you want consulting provider notified?: Yes 02/21/25 14:37 Consult Physician Routine Consulting Provider: Eugene Leos Consult Reason/Comments: Complicated UTI Do you want consulting provider notified?: Yes Primary care physician: Physician Nonstaff Hospital Course: 75-year-old lady with past medical history significant for hypertension, hyperlipidemia, psychosis who was sent to the ER from [facility] for altered mental status. Patient was recently in an inpatient psych facility was recently discharged to extended-care facility. According to [facility]-care facility staff patient was having disruptive behavior there, patient continued to act confused. Patient had labile mood there. There was no complaint of auditory or visual hallucinations. There was no current suicidal thoughts. There was no complaint of chest pain. There was no complaint of orthopnea or PND. There is no complaint of shortness of breath. Patient denies any palpitation. Denies any nausea, vomiting abdominal pain. Patient denies any complaint of dizziness. There is no complaint of headache. Patient is complaining of suprapubic tenderness. Initial lab work done in the ER showed WBC 12.59, hemoglobin 13, platelet count 213, sodium 127, potassium 3.9, BUN 11, creatinine 0.44, glucose 115, calcium 9.3 UA done positive for nitrite, urine leukocytes large amount, urine WBC 53 Urine drug screen positive for benzos Serum alcohol level 10 Influenza A not detected Influenza B not detected RSV not detected COVID-[address] head done showed no acute intracranial process Patient admitted to internal medicine service --Patient seen and examined. Patient is alert to self and place, keeps stating that she lives in a house with FBI agents around, denies any auditory or visual hallucinations. Keeps stating that she is 5 years old Hyponatremia UTI Metabolic encephalopathy Hypertension hyperlipidemia diabetes mellitus Monitor vital signs Monitor CBC Monitor CMP Delirium precaution Elopement precaution Follow-up blood culture Continue IV Rocephin Psychiatry evaluated, recommending patient does not meet criteria for inpatient psych admission ID following Patient Condition at Discharge: Fair Plan - Discharge Summary Discharge Rx Participant: No New Discharge Prescriptions: Continue FLUoxetine HCL [PROzac] 20 mg PO DAILY@0800 Fluocinolone Acetonide [Synalar] 1 applic TOPICAL DAILY PRN PRN Reason: RASH/REDNESS ON BOTH HANDS Sennosides/Docusate Sodium [Senna Plus 8.6-50 mg Tablet] 1 - 2 tab PO HS PRN PRN Reason: Constipation Sodium Chloride Tab 2 gm PO DIRECTED Dapagliflozin Propanediol [Farxiga] 10 mg PO DIRECTED Atorvastatin [Lipitor] 10 mg PO HS@1999 Albuterol Inhaler [Ventolin Hfa Inhaler] 1 puff INHALATION RT-QID PRN PRN Reason: Shortness Of Breath Or Wheezing Linagliptin [Tradjenta] 5 mg PO DAILY@0800 Haloperidol Decanoate [Haldol D] 50 mg IM Q28D haloperidoL [Haldol] 3 mg PO DIRECTED amLODIPine [Norvasc] 5 mg PO DIRECTED Discharge Medication List Atorvastatin [Lipitor] 10 mg PO HS@199909/25/24 [History] FLUoxetine HCL [PROzac] 20 mg PO DAILY@0800 09/25/24 [History] Albuterol Inhaler [Ventolin Hfa Inhaler] 1 puff INHALATION RT-QID PRN 12/26/24 [History] Fluocinolone Acetonide [Synalar] 1 applic TOPICAL DAILY PRN 12/26/24 [History] Sennosides/Docusate Sodium [Senna Plus 8.6-50 mg Tablet] 1 - 2 tab PO HS PRN 12/26/24 [History] Haloperidol Decanoate [Haldol D] 50 mg IM Q28D 02/08/25 [History] Linagliptin [Tradjenta] 5 mg PO DAILY@0800 02/08/25 [History] Dapagliflozin Propanediol [Farxiga] 10 mg PO DIRECTED 02/21/25 [History] Sodium Chloride Tab 2 gm PO DIRECTED 02/21/25 [History] amLODIPine [Norvasc] 5 mg PO DIRECTED 02/21/25 [History] haloperidoL [Haldol] 3 mg PO DIRECTED 02/21/25 [History] Follow up Appointment(s)/Referral(s): Nonstaff,Physician [Primary Care Provider] - 1-2 days Discharge Disposition: TRANSFER TO SNF/F
--- NOTE | 2025-02-23 10:03 | P.PN ---
Progress Note - Text Progress Note Date: 02/23/25 Interval history: Patient was seen today for psychiatric follow-up. Patient was laying in bed, has been taking her medications. She claims that she is sleeping very well, was more pleasant today with hand sign writer. Denies any side effects from her medications. She was alert and oriented x 3 today. Denies any depression or anxiety. No significant behavioral issues reported from nursing staff. Claims that she ate yogurt this morning and has been resting. Denies any other overnight concerns. Patient was more logical today and goal oriented. Denies any auditory or visual hallucinations denies any suicidal or homicidal ideations intent or plan. MENTAL STATUS EXAM: General Appearance: Patient appears to be laying in bed, stated age is alert, pleasant, and attempts to be cooperative. Patient appears to have fair hygiene and grooming wearing hospital gown with fair eye contact. She has a resting tremor in her hands. Behavior: Patient is calmly lying in bed without any agitated behavior. Attempts to cooperate, more pleasant today Speech: Patient's speech is fluent and nonpressured. Mood/Affect: Patient reports their mood is "ok", affect is congruent and constricted, improving Suicidality/Homicidality: Patient denies having any suicidal or homicidal ideation intent or plan. Perceptions: Patient denies any visual hallucinations and denies any auditory hallucinations Though content/process: Fairly goal oriented, somewhat concrete. More future oriented Memory and concentration: AOX3, follows directions. Judgment and insight: Chronically limited, improving mildly IMPRESSIONS: Psychosis unspecified, rule out schizophrenia versus schizoaffective disorder versus advanced Parkinson's disease versus neurocognitive disorder PLAN: -At this time patient DOES NOT meet criteria for inpatient psychiatric admission. -Delirium precautions recommended with patient including - avoiding use of narcotics and CLINICAL TRIALS NURSE sedatives, limit anticholinergic medications when possible, frequent re-orientation, minimize use of restraints, open window shades during the day and close them at night -Would recommend the following medication changes/additions: Please avoid Ativan and morphine as these will most likely precipitate patient's confusion/delirium. Continue with treatment for positive urinary allowances for infection. Seroquel 25 mg scheduled nightly for psychosis/mood stabilization/insomnia + 25 mg daily as needed for agitation/psychosis. -sheet metal worker supervisor to provide patient with outpatient mental health/psychiatry resources for appropriate follow up upon discharge -Communicated plan to patient's nurse. sheet metal worker supervisor/shoe caser will help with placement -at this time psychiatry will sign off -Please contact with any questions.
[2025-02-23 11:07] LABS: Basophils # (A) 0.05 X 10*3/uL (0.00-0.10); Basophils % (A) 0.5 %; Eosinophils # (A) 0.41 X 10*3/uL (0.04-0.35); Eosinophils % (A) 3.9 %; HCT 38.3 % (37.2-46.3); HGB 12.6 g/dL (12.0-15.0); Immature Grans, Automated 0.20 %; Lymphocytes # (A) 1.95 X 10*3/uL (0.90-5.00); Lymphocytes % (A) 18.6 %; MCH 28.6 pg (27.0-32.0); MCHC 32.9 g/dL (32.0-37.0); MCV 87.0 FL (80.0-97.0); Monocytes # (A) 0.76 X 10*3/uL (0.20-1.00); Monocytes % (A) 7.3 %; NRBC Per 100 WBC 0 X 10*3/uL (0.00-0.01); Neutrophils # (A) 7.28 X 10*3/uL (1.80-7.70); Neutrophils % (A) 69.5 %; Platelet Count 193 X 10*3/uL (140-440); RBC 4.40 X 10*6/uL (4.10-5.20); RDW 12.6 % (11.5-14.5); WBC 10.47 X 10*3/uL (4.50-10.00)
[2025-02-23 11:41] LABS: ALT 15 U/L (8-44); AST 18 U/L (13-35); Albumin 3.7 g/dL (3.8-4.9); Albumin/Globulin Ratio 1.37 Ratio (1.60-3.17); Alkaline Phosphatase 86 U/L (41-126); Anion Gap 10.80 mmol/L (4.00-12.00); BUN/Creat Ratio 22.33 Ratio (12.00-20.00); Blood Urea Nitrogen 13.4 mg/dL (9.0-27.0); Calcium 8.9 mg/dL (8.7-10.3); Carbon Dioxide 25.2 mmol/L (21.6-31.8); Chloride 98 mmol/L (96-109); Globulin 2.7 g/dL (1.6-3.3); Glucose 122 mg/dL (70-110); Potassium 4.0 mmol/L (3.5-5.5); Sodium 134 mmol/L (135-145); Total Protein 6.4 g/dL (6.2-8.2)
[2025-02-23 12:48] VITALS: BP 158/73; RESP 16
--- NOTE | 2025-02-23 14:50 | P.PN ---
Subjective Progress Note Date: 02/22/25 Principal diagnosis: Reason for follow-up is UTI Patient is a 75-year-old female with a past medical history significant for Dementia, Diabetes Mellitus, Hyperlipidemia, Hypertension, Osteoarthritis (OA), Thyroid Disorder, patient has been brought into the hospital for evaluation of mental status changes did have a positive UA elevated white count concerning for symptomatic UTI. On today's evaluation that is 02/22/2025,the patient remains to be afebrile, patient is on room air not requiring supplemental oxygen and mentioned breathing comfortably with no chest pain did have occasional dry cough.Patient denies having any nausea or vomiting, no abdominal pain and no diarrhea has been reported Patient white count is down to 10.66, creatinine 0.49 urine cultures currently pending Objective - Vital Signs Vital signs: Vital Signs Temp 98.2 F 02/22/25 12:50 Pulse 78 02/22/25 12:50 Resp 20 02/22/25 12:50 BP 148/76 02/22/25 12:50 Pulse Ox 96 02/22/25 12:50 FiO2 Intake & Output 02/21/25 02/22/25 02/22/25 18:59 06:59 18:59 Intake Total 118 Output Total 1400 600 Balance -1400 -482 Intake: Oral 118 Output: Urine 1400 600 Other: Voiding Method External Catheter Diaper Diaper External Catheter External Catheter # Voids 4 1 - Exam GENERAL DESCRIPTION: An elderly female lying in bed in no distress RESPIRATORY SYSTEM: Unlabored breathing , decreased breath sounds at bases HEART: S1 S2 regular rate and rhythm , ABDOMEN: Soft , no tenderness EXTREMITIES: No edema feet - Labs CBC & Chem 7: 02/23/25 06:38 02/23/25 06:38 Assessment and Plan (1) Allergy to sulfa drugs Status: Acute Code(s): Z88.2 - ALLERGY STATUS TO SULFONAMIDES SNOMED Code(s): 78527445 (2) Leukocytosis Status: Acute Code(s): D72.829 - ELEVATED WHITE BLOOD CELL COUNT, UNSPECIFIED SNOMED Code(s): 764617973 (3) Altered mental status Status: Acute Code(s): R41.82 - ALTERED MENTAL STATUS, UNSPECIFIED SNOMED Code(s): 173908767 (4) UTI (urinary tract infection) Status: Acute Code(s): N39.0 - URINARY TRACT INFECTION, SITE NOT SPECIFIED SNOMED Code(s): 67813027 Plan: 1patient presented hospital with mental status change which is likely multifactorial patient did have elevated white count positive UA ongoing abdominal pain likely concerning for symptomatic UTI from enteric gram-negative pathogen 2-patient did have sulfa allergy 3-patient did have some clinical improvement white count is trending down we will continue patient on Rocephin while waiting for the culture to finalize Dictation was produced using [employer] dictation software. please excuse any grammatical, word or spelling errors. Time with Patient: Less than 30
--- NOTE | 2025-02-23 14:50 | P.PN ---
Subjective Progress Note Date: 02/23/25 Principal diagnosis: Reason for follow-up is UTI Patient is a 75-year-old female with a past medical history significant for Dementia, Diabetes Mellitus, Hyperlipidemia, Hypertension, Osteoarthritis (OA), Thyroid Disorder, patient has been brought into the hospital for evaluation of mental status changes did have a positive UA elevated white count concerning for symptomatic UTI. On today's evaluation that is 02/23/2025, the patient continues to be afebrile, the patient is on room air and breathing comfortably, the Pt denies having any chest pain or cough, the patient denies having any abdominal pain no vomiting or any diarrhea has been reported by the nursing staff. Patient white count is down to 10.47, creatinine 0.6 urine is growing gram- negative Objective - Vital Signs Vital signs: Vital Signs Temp 98.0 F 02/23/25 12:29 Pulse 75 02/23/25 12:29 Resp 16 02/23/25 12:29 BP 158/73 02/23/25 12:29 Pulse Ox 96 02/23/25 12:29 FiO2 Intake & Output 02/22/25 02/23/25 02/23/25 18:59 06:59 18:59 Intake Total 1048 Output Total 1650 1800 700 Balance -602 -1800 -700 Intake: Intake, IV Titration 930 Amount Dextrose 5%-0.45% NaCl 1, 880 000 ml @ 80 mls/hr IV . [id number] [facility] Rx#:[id number] cefTRIAXone 2 gm In 50 Sodium Chloride 0.9% 50 ml @ 100 mls/hr IVPB Q24H [facility] Rx#:[id number] Oral 118 Output: Urine 1650 1800 700 Other: Voiding Method Diaper Diaper Diaper External Catheter External Catheter External Catheter # Voids 1 - Exam GENERAL DESCRIPTION: An elderly female lying in bed in no distress RESPIRATORY SYSTEM: Unlabored breathing , decreased breath sounds at bases HEART: S1 S2 regular rate and rhythm , ABDOMEN: Soft , no tenderness EXTREMITIES: No edema feet - Labs CBC & Chem 7: 02/23/25 06:38 02/23/25 06:38 Labs: Abnormal Lab Results - Last 24 Hours (Table) 02/23/25 02/23/25 Range/Units 06:38 06:38 WBC 10.47 H (4.50-10.00) X 10*3/uL Eosinophils # 0.41 H (0.04-0.35) X 10*3/uL Sodium 134 L (135-145) mmol/L BUN/Creatinine Ratio 22.33 H (12.00-20.00) Ratio Glucose 122 H (70-110) mg/dL Total Bilirubin <0.2 L (0.3-1.2) mg/dL Albumin 3.7 L (3.8-4.9) g/dL Albumin/Globulin Ratio 1.37 L (1.60-3.17) Ratio Microbiology - Last 24 Hours (Table) 02/22/25 05:57 Urine Culture - Preliminary Urine,Voided Gram Neg Bacilli Assessment and Plan (1) Allergy to sulfa drugs Status: Acute Code(s): Z88.2 - ALLERGY STATUS TO SULFONAMIDES SNOMED Code(s) : 84344064 (2) Leukocytosis Status: Acute Code(s): D72.829 - ELEVATED WHITE BLOOD CELL COUNT, UNSPECIFIED SNOMED Code(s): 321958368 (3) Altered mental status Status: Acute Code(s): R41.82 - ALTERED MENTAL STATUS, UNSPECIFIED SNOMED Code(s): 031042610 (4) UTI (urinary tract infection) Status: Acute Code(s): N39.0 - URINARY TRACT INFECTION, SITE NOT SPECIFIED SNOMED Code(s): 29811232 Plan: 1patient presented hospital with mental status change which is likely mult ifactorial patient did have elevated white count positive UA ongoing abdominal pain likely concerning for symptomatic UTI from enteric gram-negative pathogen 2-patient did have sulfa allergy 3-patient did have some clinical improvement white count is trending down his urine is growing gram-negative continue Rocephin while waiting for the culture to finalize Dictation was produced using [employer] dictation software. please excuse any grammatical, word or spelling errors. Time with Patient: Less than 30
== END 2025-02-23 13:45 | DRG 689 ==
LOC: EC 15:40 → 5NMEDONC 21:13 → OBSVTOIN 02-22 08:17
PROVIDERS: ADMIT Hospitalist; ATTEND Hospitalist
DX: N39.0 Urinary tract infection, site not specified (principal); G93.41 Metabolic encephalopathy; F03.92 Unspecified dementia, unspecified severity, with psychotic disturbance; E11.9 Type 2 diabetes mellitus without complications; I10 Essential (primary) hypertension; F03.93 Unspecified dementia, unspecified severity, with mood disturbance; E87.1 Hypo-osmolality and hyponatremia; E78.5 Hyperlipidemia, unspecified; Z79.84 Long term (current) use of oral hypoglycemic drugs; Z79.899 Other long term (current) drug therapy; Z88.2 Allergy status to sulfonamides; Z86.19 Personal history of other infectious and parasitic diseases; Z87.440 Personal history of urinary (tract) infections
CPT/HCPCS: 70450; 80053; 80306; 80320; 81001; 82075; 82140; 83735; 84100; 85025; 85610; 85730; 87077; 87086; 87186; 96361; 96374; 96375; 99285